=== PATIENT | male | born 1945 | race Caucasian/White ===

== ENCOUNTER 2018-07-07 13:58 | Emergency (ER) | payer MEDICARE, OTHER ==
[~2018-07-07] VITALS: Ht 177.8 cm; Wt 97.1 kg
[~2018-07-07 13:58] MED LIST: ASPI325; ASPI81EC PO; ATEN100; BUME2 PO; CARV25 PO; CARV6.25 PO; CEFD300 PO; CLIN300 PO; CLOBETTC TOP; Clotrimazole-Be15 GM TP; Diflucan100 MG PO; ELIQUIS5 MG PO; FOSI10; FOSI10 PO; FURO20 PO; INS50/50I; INSLIS75I SUBQ; INSUASPI SC; INSULANPEN SC; LOSHYD; POTCHL20ER; POTCHL20ER PO; PROBIOTIC1 EAC1 PO; QUIN325; SIMV10 PO; SKIEMOTL12; SPIR25 PO; Sudogest60 MG PO; TRAM50 PO; Triamcinolone A15 GM TOP; Ultram50 MG PO; Vistaril25 MG PO
== END 2018-07-07 16:08 | disposition home or self-care (01) ==
LOC: ER 13:58
DX: E11.622 Type 2 diabetes mellitus with other skin ulcer (principal); L97.929 Non-pressure chronic ulcer of unspecified part of left lower leg with unspecified severity; L97.919 Non-pressure chronic ulcer of unspecified part of right lower leg with unspecified severity; Z88.2 Allergy status to sulfonamides; Z88.5 Allergy status to narcotic agent; Z79.899 Other long term (current) drug therapy; Z79.4 Long term (current) use of insulin
CPT/HCPCS: 73590; 99283-25

== ENCOUNTER 2019-02-06 19:54 | Emergency (ER) | payer MEDICARE, OTHER ==
[~2019-02-06] VITALS: Ht 177.8 cm; Wt 95.2 kg
[2019-02-06] MEDS ORDERED: Norco 7.5-3251 EACH PO (21:23)
== END 2019-02-06 21:45 | disposition home or self-care (01) ==
LOC: ER 19:54
DX: S42.252A Displaced fracture of greater tuberosity of left humerus, initial encounter for closed fracture (principal); W18.30XA Fall on same level, unspecified, initial encounter; Z88.2 Allergy status to sulfonamides; Z88.5 Allergy status to narcotic agent; Z79.899 Other long term (current) drug therapy; Z79.4 Long term (current) use of insulin; Z86.73 Personal history of transient ischemic attack (TIA), and cerebral infarction without residual deficits; E10.40 Type 1 diabetes mellitus with diabetic neuropathy, unspecified; Z87.891 Personal history of nicotine dependence
CPT/HCPCS: 29105; 73030; 99283-25

== ENCOUNTER 2019-03-12 12:07 | Day surgery (SDC) | payer MEDICARE, OTHER ==
[~2019-03-12 12:07] MED LIST changes: +Norco 7.5-3251 EACH PO
== END 2019-03-12 23:03 | disposition home or self-care (01) ==
LOC: WOUND 12:07
DX: R23.4 Changes in skin texture (principal); E10.9 Type 1 diabetes mellitus without complications; E78.5 Hyperlipidemia, unspecified; Z87.891 Personal history of nicotine dependence; Z86.73 Personal history of transient ischemic attack (TIA), and cerebral infarction without residual deficits
CPT/HCPCS: G0463

== ENCOUNTER 2019-09-15 07:10 | Emergency (ER) | payer MEDICARE, OTHER ==
[~2019-09-15] VITALS: Ht 177.8 cm; Wt 95.2 kg
== END 2019-09-15 08:40 | disposition home or self-care (01) ==
LOC: ER 07:10
DX: R58 Hemorrhage, not elsewhere classified (principal); E10.40 Type 1 diabetes mellitus with diabetic neuropathy, unspecified; Z86.73 Personal history of transient ischemic attack (TIA), and cerebral infarction without residual deficits; Z87.891 Personal history of nicotine dependence; Z88.2 Allergy status to sulfonamides; Z88.5 Allergy status to narcotic agent; Z79.899 Other long term (current) drug therapy; Z79.01 Long term (current) use of anticoagulants; Z79.1 Long term (current) use of non-steroidal anti-inflammatories (NSAID)
CPT/HCPCS: 99283

== ENCOUNTER 2020-01-15 08:39 | Emergency (ER) | payer MEDICARE, OTHER ==
[~2020-01-15] VITALS: Ht 175.3 cm; Wt 95.2 kg
[2020-01-15] MEDS ORDERED: LISI5 (09:22)
[2020-01-15 11:31] LABS: BASOPHILS ABSOLUTE AUTO 0.07 K/mm3 (0.00-0.23); BASOPHILS PERCENT AUTO 1 % (0-2); EOSINOPHILS ABSOLUTE AUTO 0.29 K/mm3 (0.00-0.68); EOSINOPHILS PERCENT AUTO 3 % (0-6); Hematocrit 43.5 % (37.0-53.0); Hemoglobin 14.5 g/dL (13.5-17.5); IMMATURE GRAN ABSOLUTE AUTO 0.05 K/mm3 (0.00-0.10); IMMATURE GRAN PERCENT AUTO 1 % (0-1); LYMPHOCYTES ABSOLUTE AUTO 1.32 K/mm3 (0.84-5.20); LYMPHOCYTES PERCENT AUTO 13 % (21-46); MONOCYTES ABSOLUTE AUTO 1.08 K/mm3 (0.16-1.47); MONOCYTES PERCENT AUTO 11 % (4-13); Mean Corpuscular HGB 31.1 pg (26.0-34.0); Mean Corpuscular HGB Conc 33.3 g/dL (31.5-36.5); Mean Corpuscular Volume 93 fL (80-100); Mean Platelet Volume 10.6 fL (9.1-12.4); NEUTROPHILS ABSOLUTE AUTO 7.42 K/mm3 (1.96-9.15); NEUTROPHILS PERCENT AUTO 73 % (41-73); Platelet Count 377 K/mm3 (150-400); RDW Coefficient Variation 12.2 % (11.7-14.2); RDW Standard Deviation 42.4 fL (35.1-46.3); Red Blood Cell Count 4.66 M/mm3 (4.30-5.90); White Blood Cell Count 10.23 K/mm3 (4.00-11.30)
[2020-01-15 11:39] LABS: Alanine Aminotransfer (ALT/SGP 33 U/L (12-78); Albumin, Blood 3.2 g/dL (3.4-5.0); Albumin/Globulin Ratio 0.8 (0.8-1.8); Alk Phos 93 U/L (50-136); Anion Gap 7 mmol/L (6-16); Aspartate Aminotrans (AST/SGOT 28 U/L (12-37); Bilirubin, Total 0.6 mg/dL (0.1-1.0); Blood Urea Nitrogen 17 mg/dL (8-24); Bun/Creatinine Ratio 22.5 (12.0-20.0); CO2, Blood 27 mmol/L (21-32); Calcium, Blood 8.8 mg/dL (8.5-10.1); Chloride, Blood 104 mmol/L (98-108); Creatinine, Blood 0.76 mg/dL (0.60-1.20); Globulin, Blood 4.1 g/dL (2.2-4.0); Glomerular Filtration Rate >60 (60-); Glucose, Blood 201 mg/dL (70-99); Potassium, Blood 3.7 mmol/L (3.5-5.5); Sodium, Blood 138 mmol/L (136-145); Total Protein, Blood 7.3 g/dL (6.4-8.2)
== END 2020-01-15 12:08 | disposition home or self-care (01) ==
LOC: ER 08:39
PROVIDERS: Physician Assistant
DX: E10.649 Type 1 diabetes mellitus with hypoglycemia without coma (principal); E10.40 Type 1 diabetes mellitus with diabetic neuropathy, unspecified; Z88.2 Allergy status to sulfonamides; Z79.899 Other long term (current) drug therapy; Z87.891 Personal history of nicotine dependence
CPT/HCPCS: 80053; 82947; 85025; 96361; 96374; 99285-25; J7042

== ENCOUNTER 2021-05-02 04:09 | Day surgery (SDC) | payer MEDICARE, OTHER ==
[~2021-05-02 04:09] MED LIST changes: +LISI5
== END 2021-05-02 23:31 | disposition home or self-care (01) ==
LOC: WOUND 04:09
DX: L89.312 Pressure ulcer of right buttock, stage 2 (principal); E11.65 Type 2 diabetes mellitus with hyperglycemia; Z88.5 Allergy status to narcotic agent
CPT/HCPCS: A9270; G0463

== ENCOUNTER 2021-05-11 08:00 | Day surgery (SDC) | payer MEDICARE, OTHER | END 2021-05-11 23:59 | disposition home or self-care (01) | LOC: WOUND 08:00 | DX: L89.312 Pressure ulcer of right buttock, stage 2 (principal); E11.65 Type 2 diabetes mellitus with hyperglycemia; Z89.512 Acquired absence of left leg below knee; Z88.1 Allergy status to other antibiotic agents; Z88.6 Allergy status to analgesic agent | CPT/HCPCS: A9270 ==

== ENCOUNTER 2021-05-25 00:52 | Day surgery (SDC) | payer MEDICARE, OTHER | END 2021-05-25 22:48 | disposition home or self-care (01) | LOC: WOUND 00:52 | DX: L89.312 Pressure ulcer of right buttock, stage 2 (principal); E11.65 Type 2 diabetes mellitus with hyperglycemia | CPT/HCPCS: G0463 ==

== ENCOUNTER 2022-02-07 01:50 | Day surgery (SDC) | payer MEDICARE, OTHER ==
[~2022-02-07 01:50] MED LIST changes: +CEPH500 PO; +DOXY100 PO
== END 2022-02-07 23:24 | disposition home or self-care (01) ==
LOC: WOUND 01:50
DX: E11.51 Type 2 diabetes mellitus with diabetic peripheral angiopathy without gangrene (principal); I70.234 Atherosclerosis of native arteries of right leg with ulceration of heel and midfoot; E11.621 Type 2 diabetes mellitus with foot ulcer; L97.412 Non-pressure chronic ulcer of right heel and midfoot with fat layer exposed; E11.42 Type 2 diabetes mellitus with diabetic polyneuropathy; E11.610 Type 2 diabetes mellitus with diabetic neuropathic arthropathy; I87.2 Venous insufficiency (chronic) (peripheral); I48.91 Unspecified atrial fibrillation; I50.9 Heart failure, unspecified
CPT/HCPCS: A9270; G0463

== ENCOUNTER 2022-02-14 01:41 | Day surgery (SDC) | payer MEDICARE, OTHER | END 2022-02-14 23:29 | disposition home or self-care (01) | LOC: WOUND 01:41 | DX: E10.621 Type 1 diabetes mellitus with foot ulcer (principal); S61.412A Laceration without foreign body of left hand, initial encounter; L97.522 Non-pressure chronic ulcer of other part of left foot with fat layer exposed; L97.412 Non-pressure chronic ulcer of right heel and midfoot with fat layer exposed; I70.234 Atherosclerosis of native arteries of right leg with ulceration of heel and midfoot; I87.2 Venous insufficiency (chronic) (peripheral); I50.9 Heart failure, unspecified; I48.91 Unspecified atrial fibrillation | CPT/HCPCS: A9270; G0463 ==

== ENCOUNTER 2022-03-07 00:41 | Day surgery (SDC) | payer MEDICARE, OTHER | END 2022-03-07 22:58 | disposition home or self-care (01) | LOC: WOUND 00:41 | DX: E11.621 Type 2 diabetes mellitus with foot ulcer (principal); L97.412 Non-pressure chronic ulcer of right heel and midfoot with fat layer exposed; I70.234 Atherosclerosis of native arteries of right leg with ulceration of heel and midfoot; S61.412A Laceration without foreign body of left hand, initial encounter; E11.42 Type 2 diabetes mellitus with diabetic polyneuropathy; E11.51 Type 2 diabetes mellitus with diabetic peripheral angiopathy without gangrene; E11.610 Type 2 diabetes mellitus with diabetic neuropathic arthropathy | CPT/HCPCS: A9270; G0463 ==

== ENCOUNTER 2022-03-21 08:21 | Day surgery (SDC) | payer MEDICARE, OTHER | END 2022-03-21 23:02 | disposition home or self-care (01) | LOC: WOUND 08:21 | DX: E11.621 Type 2 diabetes mellitus with foot ulcer (principal); L97.522 Non-pressure chronic ulcer of other part of left foot with fat layer exposed; L97.412 Non-pressure chronic ulcer of right heel and midfoot with fat layer exposed; I87.2 Venous insufficiency (chronic) (peripheral); I70.234 Atherosclerosis of native arteries of right leg with ulceration of heel and midfoot; S61.412A Laceration without foreign body of left hand, initial encounter; X58.XXXA Exposure to other specified factors, initial encounter; E11.42 Type 2 diabetes mellitus with diabetic polyneuropathy; E11.610 Type 2 diabetes mellitus with diabetic neuropathic arthropathy; E11.51 Type 2 diabetes mellitus with diabetic peripheral angiopathy without gangrene | CPT/HCPCS: A9270 ==

== ENCOUNTER 2022-03-28 01:35 | Day surgery (SDC) | payer MEDICARE, OTHER | END 2022-03-28 23:30 | disposition home or self-care (01) | LOC: WOUND 01:35 | DX: E11.621 Type 2 diabetes mellitus with foot ulcer (principal); L97.522 Non-pressure chronic ulcer of other part of left foot with fat layer exposed; E11.51 Type 2 diabetes mellitus with diabetic peripheral angiopathy without gangrene; L97.412 Non-pressure chronic ulcer of right heel and midfoot with fat layer exposed; I70.238 Atherosclerosis of native arteries of right leg with ulceration of other part of lower leg; E11.42 Type 2 diabetes mellitus with diabetic polyneuropathy; E11.610 Type 2 diabetes mellitus with diabetic neuropathic arthropathy; I87.2 Venous insufficiency (chronic) (peripheral); S61.412A Laceration without foreign body of left hand, initial encounter | CPT/HCPCS: A9270 ==

== ENCOUNTER 2022-04-03 15:50 | Emergency (ER) | payer MEDICARE, OTHER ==
[~2022-04-03] VITALS: Ht 170.2 cm; Wt 95.7 kg
[2022-04-03 17:07] LABS: Source, Urine Clean Catch
[2022-04-03 17:08] LABS: Appearance, Urine Cloudy (Clear); Bilirubin, Urine Neg (Neg); Blood, Urine 4+ (Neg); Color, Urine Yellow (P-Yellow); Glucose Qualitative, Urine 3+ (Neg); Ketones, Urine 2+ (Neg); Leukocyte Esterase, Urine 3+ (Neg); Nitrite, Urine Neg (Neg); Protein, Urine 2+ (Neg); Urobilinogen, Urine NORM (Normal)
[2022-04-03 17:19] LABS: BASOPHILS ABSOLUTE AUTO 0.04 K/mm3 (0.00-0.23); BASOPHILS PERCENT AUTO 0 % (0-2); EOSINOPHILS ABSOLUTE AUTO 0.04 K/mm3 (0.00-0.68); EOSINOPHILS PERCENT AUTO 0 % (0-6); Hematocrit 40.1 % (37.0-53.0); Hemoglobin 13.7 g/dL (13.5-17.5); IMMATURE GRAN ABSOLUTE AUTO 0.05 K/mm3 (0.00-0.10); IMMATURE GRAN PERCENT AUTO 1 % (0-1); LYMPHOCYTES ABSOLUTE AUTO 0.48 K/mm3 (0.84-5.20); LYMPHOCYTES PERCENT AUTO 5 % (21-46); MONOCYTES ABSOLUTE AUTO 0.83 K/mm3 (0.16-1.47); MONOCYTES PERCENT AUTO 8 % (4-13); Mean Corpuscular HGB 30.2 pg (26.0-34.0); Mean Corpuscular HGB Conc 34.2 g/dL (31.5-36.5); Mean Corpuscular Volume 89 fL (80-100); Mean Platelet Volume 9.8 fL (9.1-12.4); NEUTROPHILS ABSOLUTE AUTO 8.71 K/mm3 (1.96-9.15); NEUTROPHILS PERCENT AUTO 86 % (41-73); Platelet Count 332 K/mm3 (150-400); RDW Coefficient Variation 12.5 % (11.7-14.2); RDW Standard Deviation 40.4 fL (35.1-46.3); Red Blood Cell Count 4.53 M/mm3 (4.30-5.90); White Blood Cell Count 10.15 K/mm3 (4.00-11.30)
[2022-04-03 17:37] LABS: White Blood Cells, Urine 50-100 /hpf (0-5)
[2022-04-03 17:40] LABS: Yeast/Fungi Urine Few /hpf
[2022-04-03 17:41] LABS: Red Blood Cells, Urine 0-2 /hpf (0-2)
[2022-04-03 17:42] LABS: Bacteria Many /hpf; Squamous Epithelial Cells Rare /hpf (Few)
[2022-04-03 17:57] LABS: Albumin/Globulin Ratio 0.6 (0.8-1.8); Bilirubin, Total 0.5 mg/dL (0.1-1.0); Bun/Creatinine Ratio 38.5 (12.0-20.0); Calcium, Blood 8.8 mg/dL (8.5-10.1); Creatinine, Blood 1.04 mg/dL (0.60-1.20); Potassium, Blood 5.2 mmol/L (3.5-5.5)
[2022-04-03] MEDS ORDERED: CEFP200 PO (20:22)
[2022-04-03] MEDS ORDERED: Zithromax250 MG PO (20:22)
== END 2022-04-03 20:41 | disposition home or self-care (01) ==
LOC: ER 15:50
PROVIDERS: Student in an Organized Health Care Education/Training Program
DX: N39.0 Urinary tract infection, site not specified (principal); J18.9 Pneumonia, unspecified organism; E11.40 Type 2 diabetes mellitus with diabetic neuropathy, unspecified; I50.9 Heart failure, unspecified; Z88.2 Allergy status to sulfonamides; Z88.5 Allergy status to narcotic agent; Z79.899 Other long term (current) drug therapy; Z79.4 Long term (current) use of insulin
CPT/HCPCS: 71045; 80053; 81001; 83880; 84484; 85025; 93005; 93010; A9270; J7030

== ENCOUNTER 2022-04-18 03:35 | Day surgery (SDC) | payer MEDICARE, OTHER ==
[~2022-04-18 03:35] MED LIST changes: +CEFP200 PO; +Zithromax250 MG PO
== END 2022-04-18 23:21 | disposition home or self-care (01) ==
LOC: WOUND 03:35
DX: E11.621 Type 2 diabetes mellitus with foot ulcer (principal); L97.412 Non-pressure chronic ulcer of right heel and midfoot with fat layer exposed; L97.512 Non-pressure chronic ulcer of other part of right foot with fat layer exposed; L89.322 Pressure ulcer of left buttock, stage 2; L89.312 Pressure ulcer of right buttock, stage 2; E11.51 Type 2 diabetes mellitus with diabetic peripheral angiopathy without gangrene; I70.234 Atherosclerosis of native arteries of right leg with ulceration of heel and midfoot; S61.412A Laceration without foreign body of left hand, initial encounter; X58.XXXA Exposure to other specified factors, initial encounter; E11.42 Type 2 diabetes mellitus with diabetic polyneuropathy; E11.610 Type 2 diabetes mellitus with diabetic neuropathic arthropathy; I87.2 Venous insufficiency (chronic) (peripheral)
CPT/HCPCS: A9270; G0463

== ENCOUNTER 2022-04-25 01:20 | Day surgery (SDC) | payer MEDICARE, OTHER | END 2022-04-25 22:53 | disposition home or self-care (01) | LOC: WOUND 01:20 | DX: E11.621 Type 2 diabetes mellitus with foot ulcer (principal); L97.522 Non-pressure chronic ulcer of other part of left foot with fat layer exposed; L97.512 Non-pressure chronic ulcer of other part of right foot with fat layer exposed; L89.322 Pressure ulcer of left buttock, stage 2; L89.312 Pressure ulcer of right buttock, stage 2; L97.412 Non-pressure chronic ulcer of right heel and midfoot with fat layer exposed; E11.51 Type 2 diabetes mellitus with diabetic peripheral angiopathy without gangrene; I70.234 Atherosclerosis of native arteries of right leg with ulceration of heel and midfoot; S61.412A Laceration without foreign body of left hand, initial encounter; X58.XXXA Exposure to other specified factors, initial encounter; E11.42 Type 2 diabetes mellitus with diabetic polyneuropathy; E11.610 Type 2 diabetes mellitus with diabetic neuropathic arthropathy; I87.2 Venous insufficiency (chronic) (peripheral) | CPT/HCPCS: G0463 ==

== ENCOUNTER 2022-05-09 08:00 | Day surgery (SDC) | payer MEDICARE, OTHER | END 2022-05-09 23:59 | disposition home or self-care (01) | LOC: WOUND 08:00 | DX: E11.621 Type 2 diabetes mellitus with foot ulcer (principal); L97.512 Non-pressure chronic ulcer of other part of right foot with fat layer exposed; E11.51 Type 2 diabetes mellitus with diabetic peripheral angiopathy without gangrene; L97.412 Non-pressure chronic ulcer of right heel and midfoot with fat layer exposed; I70.234 Atherosclerosis of native arteries of right leg with ulceration of heel and midfoot; S61.412A Laceration without foreign body of left hand, initial encounter; E11.42 Type 2 diabetes mellitus with diabetic polyneuropathy; E11.610 Type 2 diabetes mellitus with diabetic neuropathic arthropathy; I87.2 Venous insufficiency (chronic) (peripheral); Z89.512 Acquired absence of left leg below knee; Z88.2 Allergy status to sulfonamides | CPT/HCPCS: A9270; G0463 ==

== ENCOUNTER 2022-05-23 02:39 | Day surgery (SDC) | payer MEDICARE, OTHER | END 2022-05-24 23:56 | disposition home or self-care (01) | LOC: WOUND 02:39 | DX: E11.621 Type 2 diabetes mellitus with foot ulcer (principal); L97.512 Non-pressure chronic ulcer of other part of right foot with fat layer exposed; L97.412 Non-pressure chronic ulcer of right heel and midfoot with fat layer exposed; E11.610 Type 2 diabetes mellitus with diabetic neuropathic arthropathy; E11.42 Type 2 diabetes mellitus with diabetic polyneuropathy; I70.234 Atherosclerosis of native arteries of right leg with ulceration of heel and midfoot; I87.2 Venous insufficiency (chronic) (peripheral); Z88.8 Allergy status to other drugs, medicaments and biological substances; Z88.5 Allergy status to narcotic agent | CPT/HCPCS: A9270 ==

== ENCOUNTER 2022-06-20 01:20 | Day surgery (SDC) | payer MEDICARE, OTHER | END 2022-06-20 23:47 | disposition home or self-care (01) | LOC: WOUND 01:20 | DX: E11.621 Type 2 diabetes mellitus with foot ulcer (principal); L97.412 Non-pressure chronic ulcer of right heel and midfoot with fat layer exposed; L97.512 Non-pressure chronic ulcer of other part of right foot with fat layer exposed; E11.51 Type 2 diabetes mellitus with diabetic peripheral angiopathy without gangrene; I70.234 Atherosclerosis of native arteries of right leg with ulceration of heel and midfoot; E11.42 Type 2 diabetes mellitus with diabetic polyneuropathy; E11.610 Type 2 diabetes mellitus with diabetic neuropathic arthropathy; I87.2 Venous insufficiency (chronic) (peripheral) | CPT/HCPCS: G0463 ==

== ENCOUNTER 2022-07-04 03:45 | Day surgery (SDC) | payer MEDICARE, OTHER | END 2022-07-04 23:19 | disposition home or self-care (01) | LOC: WOUND 03:45 | DX: E11.621 Type 2 diabetes mellitus with foot ulcer (principal); L97.412 Non-pressure chronic ulcer of right heel and midfoot with fat layer exposed; L97.512 Non-pressure chronic ulcer of other part of right foot with fat layer exposed; E11.42 Type 2 diabetes mellitus with diabetic polyneuropathy; E11.610 Type 2 diabetes mellitus with diabetic neuropathic arthropathy; I70.234 Atherosclerosis of native arteries of right leg with ulceration of heel and midfoot; I87.2 Venous insufficiency (chronic) (peripheral); I50.9 Heart failure, unspecified; Z88.2 Allergy status to sulfonamides | CPT/HCPCS: G0463 ==

== ENCOUNTER 2022-07-18 07:41 | Day surgery (SDC) | payer MEDICARE, OTHER | END 2022-07-18 23:45 | disposition home or self-care (01) | LOC: WOUND 07:41 | DX: E11.621 Type 2 diabetes mellitus with foot ulcer (principal); L97.412 Non-pressure chronic ulcer of right heel and midfoot with fat layer exposed; I70.234 Atherosclerosis of native arteries of right leg with ulceration of heel and midfoot; E11.42 Type 2 diabetes mellitus with diabetic polyneuropathy; E11.610 Type 2 diabetes mellitus with diabetic neuropathic arthropathy | CPT/HCPCS: G0463 ==

== ENCOUNTER 2022-08-07 02:31 | Day surgery (SDC) | payer MEDICARE, OTHER ==
[~2022-08-07 02:31] MED LIST changes: +DEXT30SU PO; +Ventolin/Prove6.7 GM INH
== END 2022-08-07 22:55 | disposition home or self-care (01) ==
LOC: WOUND 02:31
DX: E11.621 Type 2 diabetes mellitus with foot ulcer (principal); L97.512 Non-pressure chronic ulcer of other part of right foot with fat layer exposed; L97.412 Non-pressure chronic ulcer of right heel and midfoot with fat layer exposed; E11.51 Type 2 diabetes mellitus with diabetic peripheral angiopathy without gangrene; I70.234 Atherosclerosis of native arteries of right leg with ulceration of heel and midfoot; E11.42 Type 2 diabetes mellitus with diabetic polyneuropathy; I87.2 Venous insufficiency (chronic) (peripheral)
CPT/HCPCS: G0463

== ENCOUNTER 2022-08-22 02:43 | Day surgery (SDC) | payer MEDICARE, OTHER | END 2022-08-22 23:02 | disposition home or self-care (01) | LOC: WOUND 02:43 | DX: E11.621 Type 2 diabetes mellitus with foot ulcer (principal); I70.234 Atherosclerosis of native arteries of right leg with ulceration of heel and midfoot; L97.412 Non-pressure chronic ulcer of right heel and midfoot with fat layer exposed; L97.512 Non-pressure chronic ulcer of other part of right foot with fat layer exposed; E11.622 Type 2 diabetes mellitus with other skin ulcer; L97.812 Non-pressure chronic ulcer of other part of right lower leg with fat layer exposed; I87.2 Venous insufficiency (chronic) (peripheral); E11.42 Type 2 diabetes mellitus with diabetic polyneuropathy; E11.610 Type 2 diabetes mellitus with diabetic neuropathic arthropathy; Z89.512 Acquired absence of left leg below knee | CPT/HCPCS: G0463 ==

== ENCOUNTER 2022-09-05 02:27 | Day surgery (SDC) | payer MEDICARE, OTHER | END 2022-09-05 23:47 | disposition home or self-care (01) | LOC: WOUND 02:27 | DX: E11.621 Type 2 diabetes mellitus with foot ulcer (principal); L97.512 Non-pressure chronic ulcer of other part of right foot with fat layer exposed; L97.812 Non-pressure chronic ulcer of other part of right lower leg with fat layer exposed; E11.622 Type 2 diabetes mellitus with other skin ulcer; L97.412 Non-pressure chronic ulcer of right heel and midfoot with fat layer exposed; E11.51 Type 2 diabetes mellitus with diabetic peripheral angiopathy without gangrene; I70.234 Atherosclerosis of native arteries of right leg with ulceration of heel and midfoot; E11.610 Type 2 diabetes mellitus with diabetic neuropathic arthropathy; E11.42 Type 2 diabetes mellitus with diabetic polyneuropathy; I87.2 Venous insufficiency (chronic) (peripheral) | CPT/HCPCS: A9270 ==

== ENCOUNTER 2022-09-12 02:26 | Day surgery (SDC) | payer MEDICARE, OTHER | END 2022-09-12 23:27 | disposition home or self-care (01) | LOC: WOUND 02:26 | DX: E11.621 Type 2 diabetes mellitus with foot ulcer (principal); L97.512 Non-pressure chronic ulcer of other part of right foot with fat layer exposed; E11.622 Type 2 diabetes mellitus with other skin ulcer; L97.412 Non-pressure chronic ulcer of right heel and midfoot with fat layer exposed; I70.234 Atherosclerosis of native arteries of right leg with ulceration of heel and midfoot; E11.51 Type 2 diabetes mellitus with diabetic peripheral angiopathy without gangrene; E11.42 Type 2 diabetes mellitus with diabetic polyneuropathy; E11.610 Type 2 diabetes mellitus with diabetic neuropathic arthropathy; I87.2 Venous insufficiency (chronic) (peripheral) | CPT/HCPCS: G0463 ==

== ENCOUNTER 2022-09-19 02:24 | Day surgery (SDC) | payer MEDICARE, OTHER | END 2022-09-19 23:40 | disposition home or self-care (01) | LOC: WOUND 02:24 | DX: E10.621 Type 1 diabetes mellitus with foot ulcer (principal); L97.512 Non-pressure chronic ulcer of other part of right foot with fat layer exposed; L97.812 Non-pressure chronic ulcer of other part of right lower leg with fat layer exposed; E10.622 Type 1 diabetes mellitus with other skin ulcer; L97.412 Non-pressure chronic ulcer of right heel and midfoot with fat layer exposed; E10.51 Type 1 diabetes mellitus with diabetic peripheral angiopathy without gangrene; I70.234 Atherosclerosis of native arteries of right leg with ulceration of heel and midfoot; Z89.512 Acquired absence of left leg below knee; E10.610 Type 1 diabetes mellitus with diabetic neuropathic arthropathy; E10.42 Type 1 diabetes mellitus with diabetic polyneuropathy ==

== ENCOUNTER 2022-09-21 00:12 | Day surgery (SDC) | payer MEDICARE, OTHER | END 2022-09-21 22:55 | disposition home or self-care (01) | LOC: WOUND 00:12 | DX: E10.621 Type 1 diabetes mellitus with foot ulcer (principal); E10.622 Type 1 diabetes mellitus with other skin ulcer; L97.412 Non-pressure chronic ulcer of right heel and midfoot with fat layer exposed; L97.812 Non-pressure chronic ulcer of other part of right lower leg with fat layer exposed; I87.2 Venous insufficiency (chronic) (peripheral); I70.234 Atherosclerosis of native arteries of right leg with ulceration of heel and midfoot; E10.42 Type 1 diabetes mellitus with diabetic polyneuropathy; E10.610 Type 1 diabetes mellitus with diabetic neuropathic arthropathy ==

== ENCOUNTER 2022-09-26 14:44 | Day surgery (SDC) | payer MEDICARE, OTHER | END 2022-09-26 23:16 | disposition home or self-care (01) | LOC: WOUND 14:44 | DX: E10.621 Type 1 diabetes mellitus with foot ulcer (principal); L97.412 Non-pressure chronic ulcer of right heel and midfoot with fat layer exposed; L97.812 Non-pressure chronic ulcer of other part of right lower leg with fat layer exposed; I87.2 Venous insufficiency (chronic) (peripheral); I70.234 Atherosclerosis of native arteries of right leg with ulceration of heel and midfoot; E10.42 Type 1 diabetes mellitus with diabetic polyneuropathy; E10.610 Type 1 diabetes mellitus with diabetic neuropathic arthropathy; E10.622 Type 1 diabetes mellitus with other skin ulcer ==

== ENCOUNTER 2022-10-03 02:26 | Day surgery (SDC) | payer MEDICARE, OTHER | END 2022-10-03 23:07 | disposition home or self-care (01) | LOC: WOUND 02:26 | DX: E10.621 Type 1 diabetes mellitus with foot ulcer (principal); L97.512 Non-pressure chronic ulcer of other part of right foot with fat layer exposed; L97.812 Non-pressure chronic ulcer of other part of right lower leg with fat layer exposed; L97.412 Non-pressure chronic ulcer of right heel and midfoot with fat layer exposed; I87.2 Venous insufficiency (chronic) (peripheral); I70.234 Atherosclerosis of native arteries of right leg with ulceration of heel and midfoot; E10.622 Type 1 diabetes mellitus with other skin ulcer; E10.42 Type 1 diabetes mellitus with diabetic polyneuropathy; E10.610 Type 1 diabetes mellitus with diabetic neuropathic arthropathy; E10.51 Type 1 diabetes mellitus with diabetic peripheral angiopathy without gangrene | CPT/HCPCS: A9270; G0463 ==

== ENCOUNTER 2022-10-10 06:05 | Day surgery (SDC) | payer MEDICARE, OTHER | END 2022-10-10 23:08 | disposition home or self-care (01) | LOC: WOUND 06:05 | DX: E10.621 Type 1 diabetes mellitus with foot ulcer (principal); E10.622 Type 1 diabetes mellitus with other skin ulcer; L97.412 Non-pressure chronic ulcer of right heel and midfoot with fat layer exposed; L97.812 Non-pressure chronic ulcer of other part of right lower leg with fat layer exposed; I87.2 Venous insufficiency (chronic) (peripheral); E10.51 Type 1 diabetes mellitus with diabetic peripheral angiopathy without gangrene; E10.42 Type 1 diabetes mellitus with diabetic polyneuropathy; I70.234 Atherosclerosis of native arteries of right leg with ulceration of heel and midfoot; L89.92 Pressure ulcer of unspecified site, stage 2; T23.262D Burn of second degree of back of left hand, subsequent encounter | CPT/HCPCS: A9270 ==

== ENCOUNTER 2022-10-17 00:16 | Day surgery (SDC) | payer MEDICARE, OTHER | END 2022-10-17 22:59 | disposition home or self-care (01) | LOC: WOUND 00:16 | DX: E10.621 Type 1 diabetes mellitus with foot ulcer (principal); L97.512 Non-pressure chronic ulcer of other part of right foot with fat layer exposed; L89.892 Pressure ulcer of other site, stage 2; E10.622 Type 1 diabetes mellitus with other skin ulcer; I87.2 Venous insufficiency (chronic) (peripheral); L97.412 Non-pressure chronic ulcer of right heel and midfoot with fat layer exposed; L97.812 Non-pressure chronic ulcer of other part of right lower leg with fat layer exposed; I70.234 Atherosclerosis of native arteries of right leg with ulceration of heel and midfoot; E10.42 Type 1 diabetes mellitus with diabetic polyneuropathy; L89.92 Pressure ulcer of unspecified site, stage 2 | CPT/HCPCS: A9270 ==

== ENCOUNTER 2022-10-24 00:53 | Day surgery (SDC) | payer MEDICARE, OTHER | END 2022-10-25 00:05 | disposition home or self-care (01) | LOC: WOUND 00:53 | DX: E10.621 Type 1 diabetes mellitus with foot ulcer (principal); E10.622 Type 1 diabetes mellitus with other skin ulcer; L97.412 Non-pressure chronic ulcer of right heel and midfoot with fat layer exposed; L97.812 Non-pressure chronic ulcer of other part of right lower leg with fat layer exposed; I87.2 Venous insufficiency (chronic) (peripheral); I70.234 Atherosclerosis of native arteries of right leg with ulceration of heel and midfoot; E10.51 Type 1 diabetes mellitus with diabetic peripheral angiopathy without gangrene; E10.42 Type 1 diabetes mellitus with diabetic polyneuropathy; E10.610 Type 1 diabetes mellitus with diabetic neuropathic arthropathy; L89.92 Pressure ulcer of unspecified site, stage 2 | CPT/HCPCS: A9270 ==

== ENCOUNTER 2022-10-31 01:02 | Day surgery (SDC) | payer MEDICARE, OTHER | END 2022-10-31 22:45 | disposition home or self-care (01) | LOC: WOUND 01:02 | DX: E10.621 Type 1 diabetes mellitus with foot ulcer (principal); E10.622 Type 1 diabetes mellitus with other skin ulcer; L97.412 Non-pressure chronic ulcer of right heel and midfoot with fat layer exposed; L97.812 Non-pressure chronic ulcer of other part of right lower leg with fat layer exposed; I87.2 Venous insufficiency (chronic) (peripheral); I70.234 Atherosclerosis of native arteries of right leg with ulceration of heel and midfoot; E10.42 Type 1 diabetes mellitus with diabetic polyneuropathy; E10.610 Type 1 diabetes mellitus with diabetic neuropathic arthropathy; L89.92 Pressure ulcer of unspecified site, stage 2 | CPT/HCPCS: A9270 ==

== ENCOUNTER 2022-11-08 04:08 | Day surgery (SDC) | payer MEDICARE, OTHER | END 2022-11-08 22:54 | disposition home or self-care (01) | LOC: WOUND 04:08 | DX: E10.621 Type 1 diabetes mellitus with foot ulcer (principal); L97.512 Non-pressure chronic ulcer of other part of right foot with fat layer exposed; I87.2 Venous insufficiency (chronic) (peripheral); L89.892 Pressure ulcer of other site, stage 2; E10.622 Type 1 diabetes mellitus with other skin ulcer; L97.412 Non-pressure chronic ulcer of right heel and midfoot with fat layer exposed; L97.812 Non-pressure chronic ulcer of other part of right lower leg with fat layer exposed; E10.51 Type 1 diabetes mellitus with diabetic peripheral angiopathy without gangrene; I70.234 Atherosclerosis of native arteries of right leg with ulceration of heel and midfoot; E10.42 Type 1 diabetes mellitus with diabetic polyneuropathy; E10.610 Type 1 diabetes mellitus with diabetic neuropathic arthropathy; L89.92 Pressure ulcer of unspecified site, stage 2 | CPT/HCPCS: A9270 ==

== ENCOUNTER 2022-11-16 02:13 | Day surgery (SDC) | payer MEDICARE, OTHER | END 2022-11-16 23:18 | disposition home or self-care (01) | LOC: WOUND 02:13 | DX: E10.621 Type 1 diabetes mellitus with foot ulcer (principal); E10.42 Type 1 diabetes mellitus with diabetic polyneuropathy; E10.610 Type 1 diabetes mellitus with diabetic neuropathic arthropathy; L97.412 Non-pressure chronic ulcer of right heel and midfoot with fat layer exposed; I87.2 Venous insufficiency (chronic) (peripheral); I70.234 Atherosclerosis of native arteries of right leg with ulceration of heel and midfoot; L89.92 Pressure ulcer of unspecified site, stage 2; Z89.522 Acquired absence of left knee | CPT/HCPCS: A9270 ==

== ENCOUNTER 2022-11-21 04:45 | Day surgery (SDC) | payer MEDICARE, OTHER | END 2022-11-21 23:07 | disposition home or self-care (01) | LOC: WOUND 04:45 | DX: E10.621 Type 1 diabetes mellitus with foot ulcer (principal); L89.892 Pressure ulcer of other site, stage 2; L97.512 Non-pressure chronic ulcer of other part of right foot with fat layer exposed; L97.412 Non-pressure chronic ulcer of right heel and midfoot with fat layer exposed; L97.812 Non-pressure chronic ulcer of other part of right lower leg with fat layer exposed; I87.2 Venous insufficiency (chronic) (peripheral); I70.234 Atherosclerosis of native arteries of right leg with ulceration of heel and midfoot; E10.51 Type 1 diabetes mellitus with diabetic peripheral angiopathy without gangrene; E10.42 Type 1 diabetes mellitus with diabetic polyneuropathy; E10.610 Type 1 diabetes mellitus with diabetic neuropathic arthropathy; Z89.512 Acquired absence of left leg below knee | CPT/HCPCS: A9270 ==

== ENCOUNTER 2022-11-29 02:59 | Day surgery (SDC) | payer MEDICARE, OTHER | END 2022-11-29 23:12 | disposition home or self-care (01) | LOC: WOUND 02:59 | DX: E10.621 Type 1 diabetes mellitus with foot ulcer (principal); E10.622 Type 1 diabetes mellitus with other skin ulcer; L97.412 Non-pressure chronic ulcer of right heel and midfoot with fat layer exposed; L97.812 Non-pressure chronic ulcer of other part of right lower leg with fat layer exposed; I87.2 Venous insufficiency (chronic) (peripheral); L89.892 Pressure ulcer of other site, stage 2; T23.262D Burn of second degree of back of left hand, subsequent encounter; E10.42 Type 1 diabetes mellitus with diabetic polyneuropathy; I70.234 Atherosclerosis of native arteries of right leg with ulceration of heel and midfoot | CPT/HCPCS: A9270 ==

== ENCOUNTER 2022-12-06 03:42 | Day surgery (SDC) | payer MEDICARE, OTHER | END 2022-12-06 23:38 | disposition home or self-care (01) | LOC: WOUND 03:42 | DX: E10.621 Type 1 diabetes mellitus with foot ulcer (principal); L97.512 Non-pressure chronic ulcer of other part of right foot with fat layer exposed; L97.412 Non-pressure chronic ulcer of right heel and midfoot with fat layer exposed; I70.234 Atherosclerosis of native arteries of right leg with ulceration of heel and midfoot; I87.2 Venous insufficiency (chronic) (peripheral); L97.812 Non-pressure chronic ulcer of other part of right lower leg with fat layer exposed; E10.42 Type 1 diabetes mellitus with diabetic polyneuropathy; E10.610 Type 1 diabetes mellitus with diabetic neuropathic arthropathy; T23.262A Burn of second degree of back of left hand, initial encounter; L89.92 Pressure ulcer of unspecified site, stage 2 | CPT/HCPCS: A9270 ==

== ENCOUNTER 2022-12-13 02:37 | Day surgery (SDC) | payer MEDICARE, OTHER | END 2022-12-13 23:02 | disposition home or self-care (01) | LOC: WOUND 02:37 | DX: E10.621 Type 1 diabetes mellitus with foot ulcer (principal); E10.622 Type 1 diabetes mellitus with other skin ulcer; I70.234 Atherosclerosis of native arteries of right leg with ulceration of heel and midfoot; I87.2 Venous insufficiency (chronic) (peripheral); L97.512 Non-pressure chronic ulcer of other part of right foot with fat layer exposed; L97.412 Non-pressure chronic ulcer of right heel and midfoot with fat layer exposed; L97.812 Non-pressure chronic ulcer of other part of right lower leg with fat layer exposed; E10.42 Type 1 diabetes mellitus with diabetic polyneuropathy; E10.610 Type 1 diabetes mellitus with diabetic neuropathic arthropathy; T23.262A Burn of second degree of back of left hand, initial encounter; L89.92 Pressure ulcer of unspecified site, stage 2 | CPT/HCPCS: A9270 ==

== ENCOUNTER 2022-12-20 03:35 | Day surgery (SDC) | payer MEDICARE, OTHER | END 2022-12-20 22:43 | disposition home or self-care (01) | LOC: WOUND 03:35 | DX: E10.621 Type 1 diabetes mellitus with foot ulcer (principal); L97.512 Non-pressure chronic ulcer of other part of right foot with fat layer exposed; I70.234 Atherosclerosis of native arteries of right leg with ulceration of heel and midfoot; E10.42 Type 1 diabetes mellitus with diabetic polyneuropathy | CPT/HCPCS: A9270 ==

== ENCOUNTER 2022-12-26 00:26 | Day surgery (SDC) | payer MEDICARE, OTHER | END 2022-12-26 23:33 | disposition home or self-care (01) | LOC: WOUND 00:26 | DX: E10.621 Type 1 diabetes mellitus with foot ulcer (principal); E10.622 Type 1 diabetes mellitus with other skin ulcer; L97.412 Non-pressure chronic ulcer of right heel and midfoot with fat layer exposed; L97.512 Non-pressure chronic ulcer of other part of right foot with fat layer exposed; L97.812 Non-pressure chronic ulcer of other part of right lower leg with fat layer exposed; I70.234 Atherosclerosis of native arteries of right leg with ulceration of heel and midfoot; I87.2 Venous insufficiency (chronic) (peripheral); E10.42 Type 1 diabetes mellitus with diabetic polyneuropathy; E10.610 Type 1 diabetes mellitus with diabetic neuropathic arthropathy; L89.92 Pressure ulcer of unspecified site, stage 2; T23.262D Burn of second degree of back of left hand, subsequent encounter; X58.XXXD Exposure to other specified factors, subsequent encounter ==

== ENCOUNTER 2023-01-02 01:17 | Day surgery (SDC) | payer MEDICARE, OTHER | END 2023-01-02 22:51 | disposition home or self-care (01) | LOC: WOUND 01:17 | DX: E10.621 Type 1 diabetes mellitus with foot ulcer (principal); L97.512 Non-pressure chronic ulcer of other part of right foot with fat layer exposed; I87.2 Venous insufficiency (chronic) (peripheral); E10.622 Type 1 diabetes mellitus with other skin ulcer; L97.412 Non-pressure chronic ulcer of right heel and midfoot with fat layer exposed; L97.812 Non-pressure chronic ulcer of other part of right lower leg with fat layer exposed; I70.234 Atherosclerosis of native arteries of right leg with ulceration of heel and midfoot; E10.51 Type 1 diabetes mellitus with diabetic peripheral angiopathy without gangrene; E10.42 Type 1 diabetes mellitus with diabetic polyneuropathy; E10.610 Type 1 diabetes mellitus with diabetic neuropathic arthropathy; L89.92 Pressure ulcer of unspecified site, stage 2 ==

== ENCOUNTER 2023-01-10 00:50 | Day surgery (SDC) | payer MEDICARE, OTHER | END 2023-01-10 22:44 | disposition home or self-care (01) | LOC: WOUND 00:50 | DX: I87.2 Venous insufficiency (chronic) (peripheral) (principal); L97.512 Non-pressure chronic ulcer of other part of right foot with fat layer exposed; L97.812 Non-pressure chronic ulcer of other part of right lower leg with fat layer exposed; E10.621 Type 1 diabetes mellitus with foot ulcer; E10.622 Type 1 diabetes mellitus with other skin ulcer; E10.51 Type 1 diabetes mellitus with diabetic peripheral angiopathy without gangrene; I70.234 Atherosclerosis of native arteries of right leg with ulceration of heel and midfoot; E10.42 Type 1 diabetes mellitus with diabetic polyneuropathy; L89.92 Pressure ulcer of unspecified site, stage 2 | CPT/HCPCS: A9270 ==

== ENCOUNTER 2023-01-17 02:27 | Day surgery (SDC) | payer MEDICARE, OTHER | END 2023-01-17 22:43 | disposition home or self-care (01) | LOC: WOUND 02:27 | DX: E10.621 Type 1 diabetes mellitus with foot ulcer (principal); E10.622 Type 1 diabetes mellitus with other skin ulcer; L97.412 Non-pressure chronic ulcer of right heel and midfoot with fat layer exposed; L97.812 Non-pressure chronic ulcer of other part of right lower leg with fat layer exposed; I87.2 Venous insufficiency (chronic) (peripheral); I70.234 Atherosclerosis of native arteries of right leg with ulceration of heel and midfoot; E10.42 Type 1 diabetes mellitus with diabetic polyneuropathy; E10.610 Type 1 diabetes mellitus with diabetic neuropathic arthropathy; L89.92 Pressure ulcer of unspecified site, stage 2 ==

== ENCOUNTER 2023-01-24 02:41 | Day surgery (SDC) | payer MEDICARE, OTHER | END 2023-01-24 22:53 | disposition home or self-care (01) | LOC: WOUND 02:41 | DX: E10.621 Type 1 diabetes mellitus with foot ulcer (principal); L97.512 Non-pressure chronic ulcer of other part of right foot with fat layer exposed; L97.412 Non-pressure chronic ulcer of right heel and midfoot with fat layer exposed; L97.812 Non-pressure chronic ulcer of other part of right lower leg with fat layer exposed; E10.622 Type 1 diabetes mellitus with other skin ulcer; I87.2 Venous insufficiency (chronic) (peripheral); E10.51 Type 1 diabetes mellitus with diabetic peripheral angiopathy without gangrene; I70.234 Atherosclerosis of native arteries of right leg with ulceration of heel and midfoot; E10.42 Type 1 diabetes mellitus with diabetic polyneuropathy; E10.610 Type 1 diabetes mellitus with diabetic neuropathic arthropathy; L89.92 Pressure ulcer of unspecified site, stage 2 ==

== ENCOUNTER 2023-01-31 01:48 | Day surgery (SDC) | payer MEDICARE, OTHER | END 2023-01-31 22:35 | disposition home or self-care (01) | LOC: WOUND 01:48 | DX: E10.621 Type 1 diabetes mellitus with foot ulcer (principal); E10.622 Type 1 diabetes mellitus with other skin ulcer; L97.412 Non-pressure chronic ulcer of right heel and midfoot with fat layer exposed; L97.812 Non-pressure chronic ulcer of other part of right lower leg with fat layer exposed; I87.2 Venous insufficiency (chronic) (peripheral); I70.234 Atherosclerosis of native arteries of right leg with ulceration of heel and midfoot; E10.51 Type 1 diabetes mellitus with diabetic peripheral angiopathy without gangrene; E10.610 Type 1 diabetes mellitus with diabetic neuropathic arthropathy; E10.42 Type 1 diabetes mellitus with diabetic polyneuropathy; T23.262D Burn of second degree of back of left hand, subsequent encounter; L89.892 Pressure ulcer of other site, stage 2 | CPT/HCPCS: A9270 ==

== ENCOUNTER 2023-02-14 00:46 | Day surgery (SDC) | payer MEDICARE, OTHER | END 2023-02-14 22:40 | disposition home or self-care (01) | LOC: WOUND 00:46 | DX: I70.234 Atherosclerosis of native arteries of right leg with ulceration of heel and midfoot (principal); E11.621 Type 2 diabetes mellitus with foot ulcer; E11.622 Type 2 diabetes mellitus with other skin ulcer; L97.412 Non-pressure chronic ulcer of right heel and midfoot with fat layer exposed; L97.812 Non-pressure chronic ulcer of other part of right lower leg with fat layer exposed; I87.2 Venous insufficiency (chronic) (peripheral); E11.42 Type 2 diabetes mellitus with diabetic polyneuropathy; E11.610 Type 2 diabetes mellitus with diabetic neuropathic arthropathy; T23.262D Burn of second degree of back of left hand, subsequent encounter; L89.92 Pressure ulcer of unspecified site, stage 2; E11.65 Type 2 diabetes mellitus with hyperglycemia; E87.1 Hypo-osmolality and hyponatremia; E11.59 Type 2 diabetes mellitus with other circulatory complications | CPT/HCPCS: 36415; 80048; 83036; A9270 ==

== ENCOUNTER 2023-02-21 01:07 | Day surgery (SDC) | payer MEDICARE, OTHER | END 2023-02-21 22:52 | disposition home or self-care (01) | LOC: WOUND 01:07 | DX: E10.621 Type 1 diabetes mellitus with foot ulcer (principal); L97.812 Non-pressure chronic ulcer of other part of right lower leg with fat layer exposed; E10.622 Type 1 diabetes mellitus with other skin ulcer; I70.234 Atherosclerosis of native arteries of right leg with ulceration of heel and midfoot; L97.412 Non-pressure chronic ulcer of right heel and midfoot with fat layer exposed; L89.92 Pressure ulcer of unspecified site, stage 2; I87.2 Venous insufficiency (chronic) (peripheral); E10.42 Type 1 diabetes mellitus with diabetic polyneuropathy; E10.610 Type 1 diabetes mellitus with diabetic neuropathic arthropathy | CPT/HCPCS: G0463 ==

== ENCOUNTER 2023-02-28 02:46 | Day surgery (SDC) | payer MEDICARE, OTHER | END 2023-02-28 23:23 | disposition home or self-care (01) | LOC: WOUND 02:46 | DX: E10.621 Type 1 diabetes mellitus with foot ulcer (principal); L97.412 Non-pressure chronic ulcer of right heel and midfoot with fat layer exposed; L97.512 Non-pressure chronic ulcer of other part of right foot with fat layer exposed; E10.622 Type 1 diabetes mellitus with other skin ulcer; L97.822 Non-pressure chronic ulcer of other part of left lower leg with fat layer exposed; L89.322 Pressure ulcer of left buttock, stage 2; L89.892 Pressure ulcer of other site, stage 2; I87.2 Venous insufficiency (chronic) (peripheral); E10.51 Type 1 diabetes mellitus with diabetic peripheral angiopathy without gangrene; I70.234 Atherosclerosis of native arteries of right leg with ulceration of heel and midfoot; E10.42 Type 1 diabetes mellitus with diabetic polyneuropathy; E10.610 Type 1 diabetes mellitus with diabetic neuropathic arthropathy | CPT/HCPCS: A9270; G0463 ==

== ENCOUNTER 2023-03-07 01:42 | Day surgery (SDC) | payer MEDICARE, OTHER | END 2023-03-07 22:57 | disposition home or self-care (01) | LOC: WOUND 01:42 | DX: E10.621 Type 1 diabetes mellitus with foot ulcer (principal); L97.412 Non-pressure chronic ulcer of right heel and midfoot with fat layer exposed; L97.512 Non-pressure chronic ulcer of other part of right foot with fat layer exposed; E10.622 Type 1 diabetes mellitus with other skin ulcer; L97.822 Non-pressure chronic ulcer of other part of left lower leg with fat layer exposed; L89.892 Pressure ulcer of other site, stage 2; L89.322 Pressure ulcer of left buttock, stage 2; I87.2 Venous insufficiency (chronic) (peripheral); E10.51 Type 1 diabetes mellitus with diabetic peripheral angiopathy without gangrene; I70.234 Atherosclerosis of native arteries of right leg with ulceration of heel and midfoot; E04.2 Nontoxic multinodular goiter; E10.610 Type 1 diabetes mellitus with diabetic neuropathic arthropathy | CPT/HCPCS: A9270 ==

== ENCOUNTER 2023-03-15 00:41 | Day surgery (SDC) | payer MEDICARE, OTHER | END 2023-03-16 22:43 | disposition home or self-care (01) | LOC: WOUND 00:41 | DX: E10.621 Type 1 diabetes mellitus with foot ulcer (principal); E10.622 Type 1 diabetes mellitus with other skin ulcer; L97.412 Non-pressure chronic ulcer of right heel and midfoot with fat layer exposed; L97.812 Non-pressure chronic ulcer of other part of right lower leg with fat layer exposed; L89.92 Pressure ulcer of unspecified site, stage 2; L89.322 Pressure ulcer of left buttock, stage 2; I87.2 Venous insufficiency (chronic) (peripheral); E10.51 Type 1 diabetes mellitus with diabetic peripheral angiopathy without gangrene; E10.42 Type 1 diabetes mellitus with diabetic polyneuropathy; E10.610 Type 1 diabetes mellitus with diabetic neuropathic arthropathy ==

== ENCOUNTER 2023-03-28 02:47 | Day surgery (SDC) | payer MEDICARE, OTHER | END 2023-03-28 23:41 | disposition home or self-care (01) | LOC: WOUND 02:47 | PROC: 5A02115 Assistance with Cardiac Output using Pulsatile Compression, Intermittent (ICD-10-PCS; principal; 2023-03-28) | DX: E11.51 Type 2 diabetes mellitus with diabetic peripheral angiopathy without gangrene (principal); L98.492 Non-pressure chronic ulcer of skin of other sites with fat layer exposed; I70.25 Atherosclerosis of native arteries of other extremities with ulceration; E11.621 Type 2 diabetes mellitus with foot ulcer; L97.512 Non-pressure chronic ulcer of other part of right foot with fat layer exposed; L89.892 Pressure ulcer of other site, stage 2; L03.115 Cellulitis of right lower limb; B48.8 Other specified mycoses; Z89.512 Acquired absence of left leg below knee ==

== ENCOUNTER 2023-04-11 03:37 | Day surgery (SDC) | payer MEDICARE, OTHER | END 2023-04-11 22:45 | disposition home or self-care (01) | LOC: WOUND 03:37 | DX: E10.621 Type 1 diabetes mellitus with foot ulcer (principal); L97.512 Non-pressure chronic ulcer of other part of right foot with fat layer exposed; L97.412 Non-pressure chronic ulcer of right heel and midfoot with fat layer exposed; L89.323 Pressure ulcer of left buttock, stage 3; E10.622 Type 1 diabetes mellitus with other skin ulcer; L97.812 Non-pressure chronic ulcer of other part of right lower leg with fat layer exposed; I87.2 Venous insufficiency (chronic) (peripheral); E10.51 Type 1 diabetes mellitus with diabetic peripheral angiopathy without gangrene; I70.234 Atherosclerosis of native arteries of right leg with ulceration of heel and midfoot; E10.42 Type 1 diabetes mellitus with diabetic polyneuropathy; E10.610 Type 1 diabetes mellitus with diabetic neuropathic arthropathy | CPT/HCPCS: G0463 ==

== ENCOUNTER 2023-05-09 01:40 | Day surgery (SDC) | payer MEDICARE, OTHER | END 2023-05-09 23:06 | disposition home or self-care (01) | LOC: WOUND 01:40 | DX: E10.621 Type 1 diabetes mellitus with foot ulcer (principal); L97.512 Non-pressure chronic ulcer of other part of right foot with fat layer exposed; E10.622 Type 1 diabetes mellitus with other skin ulcer; L97.912 Non-pressure chronic ulcer of unspecified part of right lower leg with fat layer exposed; L89.893 Pressure ulcer of other site, stage 3; L97.412 Non-pressure chronic ulcer of right heel and midfoot with fat layer exposed; L97.812 Non-pressure chronic ulcer of other part of right lower leg with fat layer exposed; L89.92 Pressure ulcer of unspecified site, stage 2; I87.2 Venous insufficiency (chronic) (peripheral); I70.234 Atherosclerosis of native arteries of right leg with ulceration of heel and midfoot; E10.42 Type 1 diabetes mellitus with diabetic polyneuropathy; E10.610 Type 1 diabetes mellitus with diabetic neuropathic arthropathy | CPT/HCPCS: G0463 ==

== ENCOUNTER 2023-05-14 13:13 | Emergency (ER) | payer MEDICARE, OTHER ==
[~2023-05-14] VITALS: Ht 170.2 cm; Wt 98.4 kg
[2023-05-14 16:27] VITALS: BP 148/62
[2023-05-14 16:51] LABS: BASOPHILS ABSOLUTE AUTO 0.06 K/mm3 (0.00-0.23); BASOPHILS PERCENT AUTO 1 % (0-2); EOSINOPHILS ABSOLUTE AUTO 0.37 K/mm3 (0.00-0.68); EOSINOPHILS PERCENT AUTO 4 % (0-6); Hematocrit 39.1 % (37.0-53.0); Hemoglobin 13.6 g/dL (13.5-17.5); IMMATURE GRAN ABSOLUTE AUTO 0.09 K/mm3 (0.00-0.10); IMMATURE GRAN PERCENT AUTO 1 % (0-1); LYMPHOCYTES ABSOLUTE AUTO 1.12 K/mm3 (0.84-5.20); LYMPHOCYTES PERCENT AUTO 12 % (21-46); MONOCYTES ABSOLUTE AUTO 1.12 K/mm3 (0.16-1.47); MONOCYTES PERCENT AUTO 12 % (4-13); Mean Corpuscular HGB 30.2 pg (26.0-34.0); Mean Corpuscular HGB Conc 34.8 g/dL (31.5-36.5); Mean Corpuscular Volume 87 fL (80-100); Mean Platelet Volume 10.4 fL (9.1-12.4); NEUTROPHILS PERCENT AUTO 72 % (41-73); Platelet Count 330 K/mm3 (150-400); RDW Coefficient Variation 13.2 % (11.7-14.2); RDW Standard Deviation 41.4 fL (35.1-46.3); White Blood Cell Count 9.76 K/mm3 (4.00-11.30)
[2023-05-14] MEDS ORDERED: AMOCLA875 PO (17:06)
[2023-05-14 17:26] LABS: Albumin, Blood 2.7 g/dL (3.4-5.0); Albumin/Globulin Ratio 0.6 (0.8-1.8); Bilirubin, Total 0.5 mg/dL (0.1-1.0); Bun/Creatinine Ratio 28.9 (12.0-20.0); Calcium, Blood 8.8 mg/dL (8.5-10.1); Creatinine, Blood 1.28 mg/dL (0.60-1.20); Globulin, Blood 4.8 g/dL (2.2-4.0); Potassium, Blood 4.6 mmol/L (3.5-5.5); Total Protein, Blood 7.5 g/dL (6.4-8.2)
== END 2023-05-14 17:32 | disposition home or self-care (01) ==
LOC: ER 13:13
PROVIDERS: Physician Assistant
DX: L03.115 Cellulitis of right lower limb (principal); E10.51 Type 1 diabetes mellitus with diabetic peripheral angiopathy without gangrene; E10.42 Type 1 diabetes mellitus with diabetic polyneuropathy; I50.9 Heart failure, unspecified; Z89.512 Acquired absence of left leg below knee; Z88.2 Allergy status to sulfonamides; Z88.5 Allergy status to narcotic agent; Z79.899 Other long term (current) drug therapy; Z79.01 Long term (current) use of anticoagulants; Z79.4 Long term (current) use of insulin; Z95.0 Presence of cardiac pacemaker; Z86.73 Personal history of transient ischemic attack (TIA), and cerebral infarction without residual deficits
CPT/HCPCS: 80053; 85025; 93926; 99284-25; A9270

== ENCOUNTER 2023-05-16 01:09 | Day surgery (SDC) | payer MEDICARE, OTHER ==
[~2023-05-16 01:09] MED LIST changes: +AMOCLA875 PO
== END 2023-05-16 22:40 | disposition home or self-care (01) ==
LOC: WOUND
DX: E10.621 Type 1 diabetes mellitus with foot ulcer (principal); L97.412 Non-pressure chronic ulcer of right heel and midfoot with fat layer exposed; E10.622 Type 1 diabetes mellitus with other skin ulcer; L97.812 Non-pressure chronic ulcer of other part of right lower leg with fat layer exposed; L89.92 Pressure ulcer of unspecified site, stage 2; I87.2 Venous insufficiency (chronic) (peripheral); I70.234 Atherosclerosis of native arteries of right leg with ulceration of heel and midfoot; E10.42 Type 1 diabetes mellitus with diabetic polyneuropathy; E10.610 Type 1 diabetes mellitus with diabetic neuropathic arthropathy
CPT/HCPCS: G0463

== ENCOUNTER 2023-05-23 03:02 | Day surgery (SDC) | payer MEDICARE, OTHER | END 2023-05-23 22:52 | disposition home or self-care (01) | LOC: WOUND 03:02 | DX: E10.621 Type 1 diabetes mellitus with foot ulcer (principal); L97.412 Non-pressure chronic ulcer of right heel and midfoot with fat layer exposed; E10.622 Type 1 diabetes mellitus with other skin ulcer; L97.812 Non-pressure chronic ulcer of other part of right lower leg with fat layer exposed; L89.92 Pressure ulcer of unspecified site, stage 2; I87.2 Venous insufficiency (chronic) (peripheral); E10.51 Type 1 diabetes mellitus with diabetic peripheral angiopathy without gangrene; I70.234 Atherosclerosis of native arteries of right leg with ulceration of heel and midfoot; E10.42 Type 1 diabetes mellitus with diabetic polyneuropathy; E10.610 Type 1 diabetes mellitus with diabetic neuropathic arthropathy | CPT/HCPCS: G0463 ==

== ENCOUNTER 2023-05-30 04:21 | Day surgery (SDC) | payer MEDICARE, OTHER | END 2023-05-30 23:05 | disposition home or self-care (01) | LOC: WOUND 04:21 | DX: E10.51 Type 1 diabetes mellitus with diabetic peripheral angiopathy without gangrene (principal); L97.812 Non-pressure chronic ulcer of other part of right lower leg with fat layer exposed; I70.238 Atherosclerosis of native arteries of right leg with ulceration of other part of lower leg; L97.512 Non-pressure chronic ulcer of other part of right foot with fat layer exposed; E10.42 Type 1 diabetes mellitus with diabetic polyneuropathy | CPT/HCPCS: G0463 ==

== ENCOUNTER 2023-05-30 13:46 | Inpatient (IN) | payer MEDICARE, OTHER ==
[~2023-05-30] VITALS: Ht 170.2 cm; Wt 90.0 kg
[~2023-05-30 13:46] MED LIST changes: -INSUASPI SC; +NOVOLOG FL100 UNIT/3 SC
[2023-05-30 14:37] LABS: BASOPHILS ABSOLUTE AUTO 0.07 K/mm3 (0.00-0.23); BASOPHILS PERCENT AUTO 1 % (0-2); EOSINOPHILS ABSOLUTE AUTO 0.46 K/mm3 (0.00-0.68); EOSINOPHILS PERCENT AUTO 4 % (0-6); Hematocrit 39.7 % (37.0-53.0); Hemoglobin 14.1 g/dL (13.5-17.5); IMMATURE GRAN ABSOLUTE AUTO 0.11 K/mm3 (0.00-0.10); IMMATURE GRAN PERCENT AUTO 1 % (0-1); LYMPHOCYTES ABSOLUTE AUTO 1.08 K/mm3 (0.84-5.20); LYMPHOCYTES PERCENT AUTO 9 % (21-46); MONOCYTES ABSOLUTE AUTO 1.15 K/mm3 (0.16-1.47); MONOCYTES PERCENT AUTO 10 % (4-13); Mean Corpuscular HGB 30.7 pg (26.0-34.0); Mean Corpuscular HGB Conc 35.5 g/dL (31.5-36.5); Mean Corpuscular Volume 86 fL (80-100); Mean Platelet Volume 10.6 fL (9.1-12.4); NEUTROPHILS ABSOLUTE AUTO 8.83 K/mm3 (1.96-9.15); NEUTROPHILS PERCENT AUTO 76 % (41-73); Platelet Count 354 K/mm3 (150-400); RDW Coefficient Variation 13.3 % (11.7-14.2); RDW Standard Deviation 41.5 fL (35.1-46.3)
[2023-05-30 14:54] LABS: Albumin, Blood 2.7 g/dL (3.4-5.0); Albumin/Globulin Ratio 0.5 (0.8-1.8); Bilirubin, Total 0.6 mg/dL (0.1-1.0); Bun/Creatinine Ratio 41.7 (12.0-20.0); Calcium, Blood 8.9 mg/dL (8.5-10.1); Creatinine, Blood 1.68 mg/dL (0.60-1.20); Globulin, Blood 5.2 g/dL (2.2-4.0); Potassium, Blood 5.5 mmol/L (3.5-5.5); Total Protein, Blood 7.9 g/dL (6.4-8.2)
[2023-05-30 19:32] LABS: Source, Urine Clean Catch
[2023-05-30 19:41] LABS: Appearance, Urine Clear (Clear); Bilirubin, Urine Neg (Neg); Blood, Urine 2+ (Neg); Color, Urine Yellow (P-Yellow); Glucose Qualitative, Urine 2+ (Neg); Ketones, Urine Neg (Neg); Leukocyte Esterase, Urine Neg (Neg); Nitrite, Urine Neg (Neg); Protein, Urine 2+ (Neg); Specific Gravity, Urine 1.015 (1.003-1.022); Urobilinogen, Urine NORM (Normal)
[2023-05-30 19:53] LABS: White Blood Cells, Urine 0-2 /hpf (0-5)
[2023-05-30 19:54] LABS: Bacteria Few /hpf; Squamous Epithelial Cells Few /hpf (Few)
[2023-05-30 20:08] VITALS: BP 142/66
--- NOTE | 2023-05-30 21:57 | NUR ---
PT BROUGHT IN [facility] DNR STATUS TWO NURSE VERIFY
[2023-05-31 04:28] VITALS: BP 138/58
--- NOTE | 2023-05-31 05:49 | NUR ---
PT ADMITTED AROUND 1999 LAST NIGHT. AOX4, BEDREST, ANXIOUS REGARDING INSULIN AND MAKING SURE HE WILL HAVE IT AVAILABLE FOR MEALS. EDUCATED PT AND SPOUSE ABOUT HOME MEDICATIONS, BOTH AGREE TO ONLY TAKE MEDS ORDERED IN THE HOSPITAL. FIRE SAFETY REVIEWED. PT AND SPOUSE ALSO AGREE THAT SPOUSE IS NO LONGER ABLE TO PROVIDE CARE FOR PT, SPOUSE HOPES FOR ALF DISCHARGE SO PT WILL RECEIVE NEEDED CARE AND ASSISTANCE. MANY WOUNDS NOTED TO PATIENT RLE, WELL TO COCCYX AND GLUTEAL FOLDS.
[2023-05-31 06:03] LABS: BASOPHILS ABSOLUTE AUTO 0.05 K/mm3 (0.00-0.23); BASOPHILS PERCENT AUTO 0 % (0-2); EOSINOPHILS ABSOLUTE AUTO 0.47 K/mm3 (0.00-0.68); EOSINOPHILS PERCENT AUTO 4 % (0-6); Hemoglobin 12.5 g/dL (13.5-17.5); IMMATURE GRAN ABSOLUTE AUTO 0.09 K/mm3 (0.00-0.10); IMMATURE GRAN PERCENT AUTO 1 % (0-1); LYMPHOCYTES ABSOLUTE AUTO 1.14 K/mm3 (0.84-5.20); LYMPHOCYTES PERCENT AUTO 10 % (21-46); MONOCYTES ABSOLUTE AUTO 1.59 K/mm3 (0.16-1.47); MONOCYTES PERCENT AUTO 14 % (4-13); Mean Corpuscular HGB 30.4 pg (26.0-34.0); Mean Corpuscular HGB Conc 34.7 g/dL (31.5-36.5); Mean Corpuscular Volume 88 fL (80-100); Mean Platelet Volume 11.1 fL (9.1-12.4); NEUTROPHILS ABSOLUTE AUTO 8.04 K/mm3 (1.96-9.15); NEUTROPHILS PERCENT AUTO 71 % (41-73); Platelet Count 331 K/mm3 (150-400); RDW Coefficient Variation 13.4 % (11.7-14.2); RDW Standard Deviation 43.2 fL (35.1-46.3); Red Blood Cell Count 4.11 M/mm3 (4.30-5.90); White Blood Cell Count 11.38 K/mm3 (4.00-11.30)
[2023-05-31 06:29] LABS: Albumin, Blood 2.4 g/dL (3.4-5.0); Albumin/Globulin Ratio 0.5 (0.8-1.8); Bilirubin, Total 0.4 mg/dL (0.1-1.0); Bun/Creatinine Ratio 41.1 (12.0-20.0); Calcium, Blood 8.6 mg/dL (8.5-10.1); Creatinine, Blood 1.51 mg/dL (0.60-1.20); Globulin, Blood 4.4 g/dL (2.2-4.0); Magnesium, Blood 2.3 mg/dL (1.6-2.4); Total Protein, Blood 6.8 g/dL (6.4-8.2)
[2023-05-31 07:36] VITALS: BP 96/48
[2023-05-31 16:44] VITALS: BP 122/56
--- NOTE | 2023-05-31 17:02 | NUR ---
SHIFT SUMMARY: Pt remains A&O x3 this shift. Right heal pain managed with po Tylenol. Repositioned for comfort. RLE elevated. Podiatry consult complete. VSS, Resp even nonlabored on RA. Educated on policy of accuchecks, pt verbalizes understanding. IVF infusing as ordered. Pt voiding per urinal, incontinent at times. Agrees to brief only at night. Pain and safety maintained this shift. Call light in reach. Ignition/fire safety complete with Q 1 hour rounds. Pt resting comfortably in bed. No c/o verbalized at this time. Will continue to follow.
[2023-05-31 19:53] VITALS: BP 131/48
[2023-06-01 05:01] VITALS: BP 146/57
[2023-06-01 05:32] LABS: Hematocrit 31.8 % (37.0-53.0); Mean Corpuscular HGB 30.6 pg (26.0-34.0); Mean Corpuscular HGB Conc 34.6 g/dL (31.5-36.5); Mean Corpuscular Volume 88 fL (80-100); Mean Platelet Volume 10.6 fL (9.1-12.4); Platelet Count 292 K/mm3 (150-400); RDW Coefficient Variation 13.6 % (11.7-14.2); RDW Standard Deviation 44.3 fL (35.1-46.3); White Blood Cell Count 10.22 K/mm3 (4.00-11.30)
[2023-06-01 06:00] LABS: Anion Gap 6 mmol/L (6-16); Blood Urea Nitrogen 54 mg/dL (8-24); CO2, Blood 20 mmol/L (21-32); Calcium, Blood 8.1 mg/dL (8.5-10.1); Chloride, Blood 112 mmol/L (98-108); Creatinine, Blood 1.35 mg/dL (0.60-1.20); Glomerular Filtration Rate 54 (60-); Glucose, Blood 134 mg/dL (70-99); Phosphorus, Blood 3.5 mg/dL (2.5-4.9); Potassium, Blood 4.8 mmol/L (3.5-5.5); Sodium, Blood 138 mmol/L (136-145)
[2023-06-01 07:28] VITALS: BP 122/54
--- NOTE | 2023-06-01 07:30 | NUR ---
TYLENOL MODERATELY EFFECTIVE FOR RLE AND R HIP PAIN. PT COMPLAINS OF PAIN MOSTLY WHEN REPOSITIONING. WOUNDS HAVE SCANT OUTPUT. UNEVENTFUL NIGHT. NS RUNNING AT 125. INCONTINENT OF BLADDER, NO BM. FIRE SAFETY REVIEWED.
[2023-06-01 15:43] VITALS: BP 120/40
--- NOTE | 2023-06-01 15:53 | NUR ---
THE PATIENT WAS DISCHARGED HOME WITH HIS FAMILY, AFTER DICHARGE INSTRUCTION WERE GIVEN TO THE PATIENT AND HIS FAMILY. THE PATIENT'S PORT WAS DISCONTINUED. THE PATIENT WAS WHEELED OUT IN HIS OWN WHEELCHAIR
--- NOTE | 2023-06-01 18:16 | NUR ---
THE PATIENT IA A7O X3, THE PATIENT HAS BEEN EDUCATED ON FIRE AND SOURCES OF IGNITION, THE PATIENT HAS TWO PLACES THAT HAVE OPEN WOUNDS ON HIS BUTTOX AREA, PICTURES HAVE BEEN TAKEN OF THE ONES DISCOVERED TODAY AND PUT INTO THE PATIENT'S CHART. THE PATIENT WAS BLADDED SCANED AT 1450 THE READING WAS 1151, A CATHER ORDER WAS GOTTEN AND WE FAILED TO INCERT THE CATHER, MULTIPLE TRIES HAVE FAILED AND DOCTOR DAMON HAS TAKEN OVER THE TASK. A SECOND BLADDER SCAN WAS DONE AT 1718, TOTAL 1288. THE PATIENT IS EATING WELL AND IS IN GOOD SPIRITS.
[2023-06-01 19:33] VITALS: BP 136/59
[2023-06-02 05:20] VITALS: BP 142/101
--- NOTE | 2023-06-02 05:24 | NUR ---
SUMMARY- PT AAOX2 THIS SHIFT. ORIENTED TO SELF AND PLACE ONLY. PT KNEW THE MONTH AND YEAR, BUT COULD NOT REMEMBER THE DAY. PT WAS UNSURE ABOUT HIS SITUATION. HOWELL CATHETER PATENT AND DRAINING WELL. PT'S PAIN WAS MODERATELY CONTROLLED THIS SHIFT WITH ONLY TYLENOL. PT ALSO HAD A HARD TIME FALLY ASLEEP TONIGHT. RN ENSURED FIRE SAFETY EVERY HOUR WITH ROUNDS.
[2023-06-02 06:14] LABS: Bun/Creatinine Ratio 36.8 (12.0-20.0); Calcium, Blood 7.8 mg/dL (8.5-10.1); Creatinine, Blood 1.06 mg/dL (0.60-1.20); Potassium, Blood 4.8 mmol/L (3.5-5.5)
[2023-06-02 07:54] VITALS: BP 144/57
[2023-06-02 16:12] VITALS: BP 157/56
[2023-06-02 19:23] VITALS: BP 139/52
--- NOTE | 2023-06-02 19:30 | NUR ---
SHIFT SUMMARY: PT A/O X 2, BEDREST, NWB. PT PLEASANT AND COOPERATIVE WITH CARE, VERY FORGETFUL AND NEEDED FREQUENT RE-ORIENTATION TO PLACE AND SITUATION. PT URINE DRAINING VIA CATHETER, WAS CRANBERRY COLORED THIS MORNING BUT IS NOW YELLOW. PT HAS MILD SWELLING TO PENIS. RENETTA VALDEZ'D TODAY IN PREPARATION FOR REVASC SURGERY ON SATURDAY. PT HAD NO EVIDENT USE OF IGNITION SOURCES WHILE ROUNDING TODAY.
[2023-06-03 05:19] LABS: Hematocrit 31.4 % (37.0-53.0); Hemoglobin 10.7 g/dL (13.5-17.5); Mean Corpuscular HGB 30.3 pg (26.0-34.0); Mean Corpuscular HGB Conc 34.1 g/dL (31.5-36.5); Mean Corpuscular Volume 89 fL (80-100); Mean Platelet Volume 10.2 fL (9.1-12.4); Platelet Count 302 K/mm3 (150-400); RDW Coefficient Variation 13.7 % (11.7-14.2); RDW Standard Deviation 44.9 fL (35.1-46.3); Red Blood Cell Count 3.53 M/mm3 (4.30-5.90)
[2023-06-03 05:48] LABS: Albumin, Blood 1.9 g/dL (3.4-5.0); Anion Gap 5 mmol/L (6-16); Blood Urea Nitrogen 33 mg/dL (8-24); Bun/Creatinine Ratio 29.7 (12.0-20.0); CO2, Blood 21 mmol/L (21-32); Calcium, Blood 8.2 mg/dL (8.5-10.1); Chloride, Blood 112 mmol/L (98-108); Creatinine, Blood 1.11 mg/dL (0.60-1.20); Glomerular Filtration Rate 69 (60-); Glucose, Blood 156 mg/dL (70-99); Potassium, Blood 4.8 mmol/L (3.5-5.5); Sodium, Blood 138 mmol/L (136-145)
--- NOTE | 2023-06-03 06:49 | NUR ---
NO SIGNIFICANT CHANGES TO PATIENT CONDITION DURING MY SHIFT. PT CONTINUES TO BE CONFUSED AND IRRITABLE. TYLENOL GIVEN FOR PAIN. MULTIPLE WOUNDS. HOWELL IS PATENT, LEVEL VIAL MARKER OUTPUT TODAY THAN YESTERDAY. UNEVENTFUL NIGHT. FIRE SAFETY REVIEWED.
[2023-06-03 07:49] VITALS: BP 140/60
--- NOTE | 2023-06-03 18:12 | NUR ---
SHIFT SUMMARY PATIENT ORIENTED TO SELF, CONFUSED AND IRRITABLE AT TIMES. NAPPED OFF AND ON T/O THE SHIFT. GLUCOSE READING OF 44 OBTAINED AT 1707, OJ GIVEN X2. PT REMAINED UNRESPONSIVE/DROWSY, CLAMMY. D50 PUSH ADMINISTERED BY RN AND PT CAME TO. BLOOD SUGAR INCREASED TO 141. VITALS REVIEWED. APPETITE IS GOOD. WOUND CARE COMPLETED BY MIGUEL. PATIENT REFUSED TO PARTICIPATE IN PHYSICAL THERAPY. PT CURRENTLY SITTING UP IN BED EATING DINNER. CALL LIGHT IN REACH. SOURCES OF IGNITION ASSESSED FOR DURING HOURLY ROUNDING.
[2023-06-03 20:58] VITALS: BP 126/49
[2023-06-04 04:24] VITALS: BP 149/53
[2023-06-04 05:03] LABS: BASOPHILS ABSOLUTE AUTO 0.03 K/mm3 (0.00-0.23); BASOPHILS PERCENT AUTO 0 % (0-2); EOSINOPHILS ABSOLUTE AUTO 0.46 K/mm3 (0.00-0.68); EOSINOPHILS PERCENT AUTO 4 % (0-6); Hemoglobin 10.5 g/dL (13.5-17.5); IMMATURE GRAN ABSOLUTE AUTO 0.12 K/mm3 (0.00-0.10); IMMATURE GRAN PERCENT AUTO 1 % (0-1); LYMPHOCYTES ABSOLUTE AUTO 1.04 K/mm3 (0.84-5.20); LYMPHOCYTES PERCENT AUTO 8 % (21-46); MONOCYTES ABSOLUTE AUTO 1.55 K/mm3 (0.16-1.47); MONOCYTES PERCENT AUTO 12 % (4-13); Mean Corpuscular HGB 30.5 pg (26.0-34.0); Mean Corpuscular Volume 87 fL (80-100); Mean Platelet Volume 9.8 fL (9.1-12.4); NEUTROPHILS ABSOLUTE AUTO 9.65 K/mm3 (1.96-9.15); NEUTROPHILS PERCENT AUTO 75 % (41-73); Platelet Count 301 K/mm3 (150-400); RDW Coefficient Variation 13.7 % (11.7-14.2); RDW Standard Deviation 42.5 fL (35.1-46.3); Red Blood Cell Count 3.44 M/mm3 (4.30-5.90); White Blood Cell Count 12.85 K/mm3 (4.00-11.30)
[2023-06-04 05:47] LABS: Bun/Creatinine Ratio 33.6 (12.0-20.0); Calcium, Blood 8.3 mg/dL (8.5-10.1); Creatinine, Blood 1.07 mg/dL (0.60-1.20); Potassium, Blood 4.7 mmol/L (3.5-5.5)
[2023-06-04 07:26] VITALS: BP 132/51
[2023-06-04 10:46] LABS: Percent Saturation 12.7 % (20.0-50.0)
[2023-06-04 14:40] VITALS: BP 122/50
[2023-06-04 15:51] VITALS: BP 126/49
--- NOTE | 2023-06-04 18:33 | NUR ---
SHIFT SUMMARY PATIENT A&OX2 TO HIMSELF AND PLACE. IRRITABILITY NOTED T/O SHIFT. MEDICATED WITH TYLENOL FOR PAIN. CBG OF 58 OBTAINED AT 1637, NO S/S. ICE CREAM X2 GIVEN AND CBG INCREASED TO 65 AND THEN 100. PT'S PERSONAL GLUCOMETER DOES NOT MATCH READINGS OF HOSPITAL GLUCOMETER. D50 PUSH PRN ORDERED AND ADDED TO EMAR. PATIENT COMPLAINED OF SOB - RR WAS 26, NO ABNORMAL LUNG SOUNDS. RT ADMINISTERED ALBUTEROL AND LASIX GIVEN PER ORDERS. ASSESSED FOR SOURCES OF IGNITIONS DURING HOURLY ROUNDING. PATIENT CURRENTLY EATING DINNER, CALL LIGHT IN REACH. NPO AT MIDNIGHT FOR REVASCULARIZATION PROCEDURE TOMORROW (POTENTIALLY AT 0800).
[2023-06-04 19:25] VITALS: BP 134/66
--- NOTE | 2023-06-04 21:53 | NUR ---
I SPOKE TO NURSE, CASSIUS, RN TO DETERMINE HER UNDERSTANDING OF ANGIOGRAM WITH AIDA. SHE REPORTED PER SHIFT REPORT, AIDA HAD ALREADY SEEN THIS PT. I RELAYED THAT WE DIDN'T HAVE ANY NOTES OR A CONSULT. I SPOKE TO SHANTEL, ACC AND SHE PULLED UP TOMORROW'S SCHEDULE - AND REPORTED THIS PT WASN'T ON THE SCHEDULE. PT REPORTED HE IS SCHEDULED FOR TOMORROW AM AT 7AM (HOWEVER THIS PROCEDURE SHEET-PERIPHERAL ANGIOGRAM) WAS FOR OP PROCEDURE. I CONTACTED MADONNA, NURSING GUN PERFORATOR LOADER, AND HE ASKED THAT I CONTACT HOSPITALIST VILMA. I SPOKE TO ALLAN LAMBERT AND REVIEWED DR. VELASQUEZ'S NOTE THAT SHE HAD CONSULTED DR. PARRA. FAUSTO REPORTED HE WOULD REVIEW THE CHART, AND SEND DR. PARRA A TEXT VILMA IF HE DETERMINED THIS WAS NEEDED. I ALSO EXPLAINED TO FAUSTO, THAT PT WAS SCHEDULED FOR TOMORROW AM ( AN OP FOR ANGIOGRAM PROCEDURE.) I ALSO REPORTED DR. PARRA IS CURRENTLY IN THE OR FOR A PROCEDURE. I REPORTED THIS INFORMATION TO DAYANA HAMMONDS.
[2023-06-05] VITALS (10 sets, daily range): BP systolic 131–168; BP diastolic 53–104
--- NOTE | 2023-06-05 00:30 | NUR ---
PATIENTS CONFUSION INCREASING, PATIENT VERY OPPOSITIONAL AND PARANOID, REDIRECTED AND ORIENTED, PATIENT OPPOSITIONAL SAYING "THAT NOT TRUE YOUR LIEING TO ME", REPOSTIONED IN BED, LIGHT OFF, PATIENT HAS NOT SLEPT THIS PM
--- NOTE | 2023-06-05 01:48 | NUR ---
patient confusion increasing, hallucinating someone by the name of juanita is in the room, wants to get oob so he can get to the other bed, conituing to re-orient patient, oppositional arguementation and irritation increasing. repostioned, will continue to monitor
--- NOTE | 2023-06-05 03:31 | NUR ---
confusion increasing to impulsive, trying to get out of the bed, easily directed to get back in, bed alarm on, patient has not slept this shift, npo, call light with in reach
--- NOTE | 2023-06-05 04:42 | NUR ---
PATIENTS CONFUSION, DEFENCIVENESS, IRRITABLE THROUGH OUT THE NIGHT, PATIENT HAS INCREASED AGITATION WITH REDIRECTION OF INTERVENTION EDUCATION, PATIENT HALLUCINATED TONIGHT THAT PEOPLE WHERE IN HIS ROOM, NPO FOR REVASCULIATION TODAY, REFUSED TYLENOL THROUGH OUT THE NIGHT, HEART RATE KRIS 51-60, HEEL PROTECTOR ON THE RIGHT FOOT, PATIENT NOW SLEEPING SNORING LOUDLY, BED ALRM ON, CALL LIGHT WITH IN REACH
--- NOTE | 2023-06-05 05:46 | NUR ---
LEFT A MESSAGE WITH DR FIELDS, PATEINT SCREAMING OUT, THREATENTING TO CALL THE DIGITAL MARKETING ASSOCIATE, PATIENT DEMANDING TO LEAVE SO HE CAN GET TO HIS PROCEDURE, CONTINUALLY TRYING TO GET OOB, AGITATION INCREASED, RELAYED TO CHARGE PATIENTS BEHAVIOR
[2023-06-05 06:10] LABS: Hemoglobin 10.3 g/dL (13.5-17.5); Mean Corpuscular HGB 30.5 pg (26.0-34.0); Mean Corpuscular HGB Conc 34.3 g/dL (31.5-36.5); Mean Corpuscular Volume 89 fL (80-100); Mean Platelet Volume 10.6 fL (9.1-12.4); Platelet Count 318 K/mm3 (150-400); RDW Coefficient Variation 13.4 % (11.7-14.2); RDW Standard Deviation 43.8 fL (35.1-46.3); Red Blood Cell Count 3.38 M/mm3 (4.30-5.90); White Blood Cell Count 12.17 K/mm3 (4.00-11.30)
--- NOTE | 2023-06-05 06:16 | NUR ---
PATIENT MEDICATED WITH 5 MG ZYPREXA IM, PATIENT STILL SCREAMING OUT AND CALLING THE PRISON LIBRARIAN, CHARGE NURSE AWARE, WILL RELAY TO PM RN
[2023-06-05 06:35] LABS: Magnesium, Blood 1.7 mg/dL (1.6-2.4)
[2023-06-05 06:56] LABS: Albumin, Blood 1.8 g/dL (3.4-5.0); Albumin/Globulin Ratio 0.4 (0.8-1.8); Bilirubin, Total 0.4 mg/dL (0.1-1.0); Bun/Creatinine Ratio 36.4 (12.0-20.0); Creatinine, Blood 1.07 mg/dL (0.60-1.20); Globulin, Blood 4.1 g/dL (2.2-4.0); Potassium, Blood 4.6 mmol/L (3.5-5.5); Total Protein, Blood 5.9 g/dL (6.4-8.2)
--- NOTE | 2023-06-05 09:37 | NUR ---
PT LEFT THIS MORNING JUST AFTER SHIFT CHANGE FOR REVAS WITH DR. PARRA. REPORT GIVEN TO DRAFTER CIVIL ENGINEERING
--- NOTE | 2023-06-05 16:11 | NUR ---
Bedside report received from Katlin Negro RN. Pt dressing changes done on the right lower extremity, per written wound care orders. Pt tolerated well, appears to be sleeping but wincing occasionally during that. He yells out, is confused, when CNAs repositioning and doing pericare on the pt afterwards. He is now apparently sleeping. Easily arousable, but sleeps in between care.
--- NOTE | 2023-06-05 16:18 | NUR ---
PT AR[facility]IV[facility] THIS MORNING AT 0930A POST REVASCULARIZATION OF RLE, PT HAS LEFT GORIN SITE WITH CLOSURE DEVICE, SITE WAS INTACT WITH NO HEMATOMA OR BLEEDING NOTED, FULLY RECOVERED NOW. PT WAS ALERT AND ORIENTED X2, CONFUSED, GETS EASILY IRRITATED/AGITATED, HALLUCINATING, PICKING AND PULLING ON WIRES AND TUBINGS. PT PULLED BP CUFF AND O2 READER OFF WAS ALSO PULLNG ON HOWELL CATHETER, PT WAS NOT REDIRECTABLE. THREATENS WHEN MOVED AND REPOSITIONED IN BED. REFUSED TO EAT AND DRINK FOR LUNCH. PT WAS ASLEEP POST PROCEDURE AND AFTER LUNCH TIME. DRESSINGS ON RIGHT FOOT WAS CHANGED PER DRESSING CHANGE ORDERS. PT'S HOWELL DRAINING VIA GRAVITY WITH YELLOW URINE. VITALS HRR VPACED, SBP 150-160'S, SATS ABOVE 90% ON RA, AFEBRILE. BED ALARM ON AND BED IN LOWEST POSITION FOR SAFETY. CALL LIGHTS IN REACH REPORT GIVEN TO CAPO ANNE
--- NOTE | 2023-06-05 18:18 | NUR ---
Pt awakens easily, but not readily conversant. Declined any dinner, but did take his coreg with pudding and readily ate the entire cup, although he did need to be fed. He was able to give himself some water to drink, but didn't want very much. Remains sittin gup in bed, HOB elevated 50 degrees after eating and drinking. Son Nicola Razo called, and was updated on pt condition. Pt was told that his son had called to check up on him from [facility].
--- NOTE | 2023-06-05 21:21 | NUR ---
SAFETY & EDUCATION PT & FAMILY EDUCATED RE: IGNITION SOURCES AND RISK OF INJURY WHILE OXYGEN IS IN USE. PT DENIES SMOKING & PT AND FAMILY VERBALIZE UNDERSTANDING.
[2023-06-06 03:45] VITALS: BP 145/58
[2023-06-06 04:22] LABS: Hemoglobin 11.2 g/dL (13.5-17.5); Mean Corpuscular HGB 30.5 pg (26.0-34.0); Mean Corpuscular HGB Conc 33.9 g/dL (31.5-36.5); Mean Corpuscular Volume 90 fL (80-100); Mean Platelet Volume 11.1 fL (9.1-12.4); Platelet Count 330 K/mm3 (150-400); RDW Coefficient Variation 13.6 % (11.7-14.2); RDW Standard Deviation 44.9 fL (35.1-46.3); Red Blood Cell Count 3.67 M/mm3 (4.30-5.90); White Blood Cell Count 12.39 K/mm3 (4.00-11.30)
[2023-06-06 04:45] LABS: Albumin, Blood 1.7 g/dL (3.4-5.0); Albumin/Globulin Ratio 0.4 (0.8-1.8); Bilirubin, Total 0.6 mg/dL (0.1-1.0); Bun/Creatinine Ratio 27.6 (12.0-20.0); Calcium, Blood 8.2 mg/dL (8.5-10.1); Creatinine, Blood 1.05 mg/dL (0.60-1.20); Globulin, Blood 4.4 g/dL (2.2-4.0); Potassium, Blood 4.9 mmol/L (3.5-5.5); Total Protein, Blood 6.1 g/dL (6.4-8.2)
--- NOTE | 2023-06-06 05:15 | NUR ---
SHIFT SUMMARY SEE PREVIOUS NOTE. PT A&Ox4, COMMUNICATES NEEDS APPROPRIATELY. PT SLEPT COMFORTABLY THROUGHOUT SHIFT. BP STABLE, PACED 50's, DENIES CP/PRESSURE. SpO2> 92% RA, DENIES SOB. L GROIN SITE REMAINS WNL, NO BRUISING, OOZING, OR HEMATOMA, DRESSING C/D/I. R PEDAL PULSE PRESENT. NO OTHER EVENTS, WILL REPORT TO ONCOMING RN.
[2023-06-06 07:47] VITALS: BP 172/62
--- NOTE | 2023-06-06 09:36 | NUR ---
CARE ASSUMPTION This RN assumed care at 0700. vital signs stable. tele vpaced 50. patient is alert and oriented. patient is paranoid. patient thinking that the staff at charge station is talking about him. this rn informed the patient that they are not and sat at bedside with patient. patient uses call light inappropriately, pushing call light multiple times. kennethjaclynHeladio pond has a left bka. left groin site is notender, scant blood, size of a eber, on dressing and was there upon assumpatiion of care. right leg revasced. scabs scattered throughout. see shift assessment for further detials. patient reports no pain, chest pain/pressure or shortness of breath. occupational therapy in working with patient this morning. plan of care up to date.
[2023-06-06 11:22] VITALS: BP 153/55
[2023-06-06 16:18] VITALS: BP 141/58
--- NOTE | 2023-06-06 17:41 | NUR ---
transfer note.shift summary this rn called juanita, caregiver, to give update about moving to room 345 on medical floor. juanita did not answer phone. no acute changes this shift. patient became angry because myself and malcolm rn in room discussing what is in patients bag, and took patients glucose tabs and locked in draw, which was told to medical floor rn in report, and to lock them in the drawer. patient caregiver juanita updated on and talked to the patient to help calm him down. patient is calmer now. no acute changes. plan of care remains up to date.
--- NOTE | 2023-06-06 18:28 | NUR ---
PT ARRIVED TO THE MEDICAL FLOOR FROM THE PCU VIA BED. REPORT TAKEN FROM PANCHO SINGH RN. PT ORIENTED TO THE ROOM CALL SYSTEM. CALL LIGHT IN REACH, WILL CONTINUE TO MONIOTR AND ASSESS FOR CHANGES
[2023-06-06 19:38] VITALS: BP 118/52
--- NOTE | 2023-06-06 23:52 | NUR ---
ASSUMED CARE OF PT. A/O AT FIRST THEN HAS BECOME CONFUSED THIS EVENING WITH BOUTS OF PARANOIA. NO C/O PAIN AT THIS POINT BUT PT VERY STIFF WHEN TURNING. PT A LITTLE HOSTILE TO STEEL ROLLERLeni RANGEL AND KICKED HIM OUT OF ROOM. FSBS WAS 370 DOWN FROM 400. PT SAYS THATS TOO LOW SO MAYBE NEEDS SOME MORE EDU ON CORRECT LEVELS. PT GATHERIFGN INFORMATION FROM OWN MONITOR.
--- NOTE | 2023-06-07 05:10 | NUR ---
[facility] FIRE EDU DONE. PT DID WELL WAS PRETTY CONFUSED THROUGHOUT SHIFT BUT EASILY REORIENTED. MERY RANGEL WAS KICKED OUT OF ROOM BECAUSE PT BECAME ANGRY AND PARANOID. PT HAD NO PAIN AND WAS ENC TO REPOSITION THROUGHOUT THE NIGHT. HOWELL DRAINING AND WILL BE DISCHARGED WITH CATH. VSS NO S/S OF DISTRESS.
[2023-06-07 05:44] VITALS: BP 152/56
[2023-06-07 07:09] VITALS: BP 164/64
[2023-06-07 15:55] VITALS: BP 149/54
--- NOTE | 2023-06-07 16:17 | NUR ---
PT IS A/OX3, PLEASANT AND COOPERATIVE. PT IS UP TO THE CHAIR WITH MAX ASSIST DUE TO RLE CELLULITIS/PAIN AND LEFT BKA. PT WAS ASSISTED UP PER HIS REQUEST TO HIS ELECTRIC WHEELCHAIR THIS AM AND STAYED IN THE CHAIR UNTIL AFTER LUNCH. THE PT HAS BEEN POLITE AND COOPERATIVE SO FAR THIS SHIFT. THE PT WAS MEDICATED FOR WILL PAIN THIS AM. THE PTS SIGNIFICANT OTHER WAS IN TO SEE HIM THIS AFTERNOON. CALL LIGHT IN REACH. WILL CONTINUE TO MONITOR AND ASSESS FOR CHANGES.
[2023-06-07 19:48] VITALS: BP 141/52
--- NOTE | 2023-06-07 20:20 | NUR ---
PT STATUS PT IS CONFUSED. PT IS REFUSING CHEM BG. HE BELIEVES HE IS AT HOME. WE WILL TRY AGAIN
[2023-06-08] VITALS (7 sets, daily range): BP systolic 125–181; BP diastolic 47–59
--- NOTE | 2023-06-08 04:14 | NUR ---
SHIFT SUMMARY ADMITTED FOR [facility]. DNR CODE. PLAN IS FOR REHAB, THEN PLACEMENT. RIGHT LEG DRESSINGS IN PLACE FROM DR. PARRA CONSULT PROCEDURE. WOUND CARE ORDERS IN PLACE. HOWELL IN PLACE. ADA DIET. ON RA. HE USES A WHEELCHAIR AT [facility]. LEFT LEG BKA. HE IS ON ELIQUIS. HE IS CONFUSED/AMS. RIGHT FOOT HAS CHRONIC ULCERS ON FOOT. HE WILL DC WITH HOWELL IN PLACE AND SEE UROLOGY OUTPT. FIRE SAFETY AND IGNITION RISK HAS BEEN ASSESSED AND DISCUSSED WITH THIS PT.
[2023-06-08 05:37] LABS: Hematocrit 30.8 % (37.0-53.0); Mean Corpuscular HGB 30.8 pg (26.0-34.0); Mean Corpuscular HGB Conc 35.7 g/dL (31.5-36.5); Mean Corpuscular Volume 86 fL (80-100); Mean Platelet Volume 9.9 fL (9.1-12.4); Platelet Count 341 K/mm3 (150-400); RDW Coefficient Variation 13.1 % (11.7-14.2); RDW Standard Deviation 41.2 fL (35.1-46.3); Red Blood Cell Count 3.57 M/mm3 (4.30-5.90); White Blood Cell Count 11.44 K/mm3 (4.00-11.30)
[2023-06-08 07:08] LABS: Albumin, Blood 1.8 g/dL (3.4-5.0); Albumin/Globulin Ratio 0.4 (0.8-1.8); Bilirubin, Total 0.4 mg/dL (0.1-1.0); Bun/Creatinine Ratio 34.8 (12.0-20.0); Creatinine, Blood 0.98 mg/dL (0.60-1.20); Globulin, Blood 4.6 g/dL (2.2-4.0); Potassium, Blood 4.4 mmol/L (3.5-5.5); Total Protein, Blood 6.4 g/dL (6.4-8.2)
--- NOTE | 2023-06-08 09:00 | NUR ---
pt laying in bed awake watching tv, coopertive with care, a/ox2, lungs are clear dim in bases, resp even and unlabored, no cough noted, hrr, pacer site to lcw, no edema noted on right foot, left bka, piv to left hand s.l. site is clear and patent, btx4, abd flat soft nontender, hernandez cath in place for acute retention, draining yellow urine, skin has wounds to right foot/heel, maew is max assist to chair per report, kate call light in reach.
--- NOTE | 2023-06-08 18:13 | NUR ---
pt frequently calls and doesn't remember calling, is not completely cooperative with care, as he insists on pushing against the bed rail while changing his brief, has been confused and insist he is in his home, when reoriented that he is in hosp he states you might be but im not, no further changes this shift. call light in reach.
--- NOTE | 2023-06-09 03:40 | NUR ---
PATIENT VERY ANXIOUS IN EVENING, CALLING OUT EVERY 4-5 MINUTES FOR THE SAME ITEMS AND REPEATING QUESTIONS ABOUT THE WHEREABOUTS OF HIS SIGNIFICANT OTHER WELL HIS LITTLE DOG. NO COMPLAINTS OF PAIN OR DISCOMFORT AT ALL. HAD TO BE REASSURED THAT HE WAS IN FACT VOIDING INTO HIS HOWELL CATH. URINE IS CLEAR AND YELLOW. AFTER HS, ISIAH SLEPT WELL FOR THE DURATION OF THE SHIFT. NO SOURCES OF IGNITION FOUND . FIRE SAFETY DISCUSSED WITH PATIENT. QUESTIONS ANSWERED.
[2023-06-09 04:50] VITALS: BP 143/59
[2023-06-09 05:01] LABS: Hematocrit 30.3 % (37.0-53.0); Hemoglobin 10.5 g/dL (13.5-17.5); Mean Corpuscular HGB 30.3 pg (26.0-34.0); Mean Corpuscular HGB Conc 34.7 g/dL (31.5-36.5); Mean Corpuscular Volume 87 fL (80-100); Mean Platelet Volume 10.1 fL (9.1-12.4); Platelet Count 372 K/mm3 (150-400); RDW Coefficient Variation 13.2 % (11.7-14.2); RDW Standard Deviation 41.6 fL (35.1-46.3); Red Blood Cell Count 3.47 M/mm3 (4.30-5.90); White Blood Cell Count 10.91 K/mm3 (4.00-11.30)
[2023-06-09 05:29] LABS: Albumin, Blood 1.7 g/dL (3.4-5.0); Albumin/Globulin Ratio 0.4 (0.8-1.8); Bilirubin, Total 0.3 mg/dL (0.1-1.0); Bun/Creatinine Ratio 38.9 (12.0-20.0); Calcium, Blood 8.1 mg/dL (8.5-10.1); Creatinine, Blood 1.08 mg/dL (0.60-1.20); Globulin, Blood 4.4 g/dL (2.2-4.0); Potassium, Blood 4.6 mmol/L (3.5-5.5); Total Protein, Blood 6.1 g/dL (6.4-8.2)
[2023-06-09 07:30] VITALS: BP 150/56
[2023-06-09 15:25] VITALS: BP 141/62
--- NOTE | 2023-06-09 18:38 | NUR ---
DAY SHIFT SUMMARY: A&Ox3-4. HAS BEEN PLEASANT AND COOPERATIVE WITH CARE SINCE ASSUMPTION OF CARE AT 1500. LARGE BM, ATE MOST OF HIS DINNER. GLUCOSE @ DINNERTIME 225 RECEIVING 4u INSULIN. MEPILEX PLACED TO WOUND RIGHT POSTERIOR THIGH. FIRE SAFETY INTERVENTION DONE. REPORT TO ONCOMING RN.
[2023-06-09 19:36] VITALS: BP 140/54
[2023-06-10 07:18] VITALS: BP 164/56
[2023-06-10 16:07] VITALS: BP 160/57
--- NOTE | 2023-06-10 16:44 | NUR ---
SHIFT SUMMARY- PT IS ALERT, AND COOPERATIVE. HE HAS INTERMITENT CONFUSION. HE WAS UP TO THE CHAIR THIS AFTERNOON WITH PT. HIS BED IS IN THE LOW POSITON AND CALL LIGHT IS WITHIN REACH.
[2023-06-10 19:45] VITALS: BP 151/73
[2023-06-11 05:23] LABS: BASOPHILS ABSOLUTE AUTO 0.09 K/mm3 (0.00-0.23); BASOPHILS PERCENT AUTO 1 % (0-2); EOSINOPHILS ABSOLUTE AUTO 0.75 K/mm3 (0.00-0.68); EOSINOPHILS PERCENT AUTO 7 % (0-6); Hematocrit 33.1 % (37.0-53.0); Hemoglobin 11.6 g/dL (13.5-17.5); IMMATURE GRAN ABSOLUTE AUTO 0.21 K/mm3 (0.00-0.10); IMMATURE GRAN PERCENT AUTO 2 % (0-1); LYMPHOCYTES ABSOLUTE AUTO 1.37 K/mm3 (0.84-5.20); LYMPHOCYTES PERCENT AUTO 13 % (21-46); MONOCYTES ABSOLUTE AUTO 1.17 K/mm3 (0.16-1.47); MONOCYTES PERCENT AUTO 11 % (4-13); Mean Corpuscular HGB 30.5 pg (26.0-34.0); Mean Corpuscular Volume 87 fL (80-100); Mean Platelet Volume 9.8 fL (9.1-12.4); NEUTROPHILS ABSOLUTE AUTO 7.11 K/mm3 (1.96-9.15); NEUTROPHILS PERCENT AUTO 67 % (41-73); Platelet Count 450 K/mm3 (150-400); RDW Coefficient Variation 13.4 % (11.7-14.2); RDW Standard Deviation 42.5 fL (35.1-46.3)
[2023-06-11 05:52] LABS: Bun/Creatinine Ratio 36.3 (12.0-20.0); Calcium, Blood 8.3 mg/dL (8.5-10.1); Creatinine, Blood 0.88 mg/dL (0.60-1.20); Potassium, Blood 4.5 mmol/L (3.5-5.5)
--- NOTE | 2023-06-11 06:02 | NUR ---
END OF SHIFT SUMMARY PT A&O x3-4 WITH STML. INCREASED CONFUSION, PT BEGAN TO MAKE STATEMENTS SUCH HE WAS GOING TO CALL THE POLICE. PT FINALLY APPEARED TO BE ASLEEP, RESTING COMFORTABLY. HOWELL CATH PATENT. NEW ORDER FOR PRN IV HALDOL AVAILABLE FOR PT WHEN AGGITATION OCCURS. PT COMPLIANT WITH MEDICATIONS LAST NIGHT. CALL LIGHT WITHIN REACH, WCTM.
[2023-06-11 07:41] VITALS: BP 182/80
[2023-06-11] MEDS ORDERED: LISI20 PO (10:43)
[2023-06-11 15:37] VITALS: BP 152/51
[2023-06-11] MEDS ORDERED: KETO15TC TOP (16:57)
--- NOTE | 2023-06-11 18:09 | NUR ---
SHIFT SUMMARY PT SLEEPING LATE TODAY. HAS BEEN QUIET MOST OF THE DAY BUT PARANOID ABOUT MEDS AND INSISTING ON CALLING HIS CAREGIVER BEFORE TAKING ANY MEDICATIONS. CAREGIVER CONCERNED ABOUT HALLUCINATIONS LAST NIGHT AND REPORTS LAST NIGHTS WAS THE WORST YET. UP TO CHAIR FOR SUPPER. CAN BE SHORT TEMPERED AT TIMES BUT AGREEABLE MOST OF THE TIME. DRESSINGS TO WOUNDS INTACT.
[2023-06-11 19:42] VITALS: BP 134/57
--- NOTE | 2023-06-12 03:56 | NUR ---
END OF SHIFT SUMMARY UNEVENTFUL NIGHT; PT SLEPT THE MAJORITY OF THE NIGHT. PEPCID WAS DISCONTINUED, PT BELIEVES THAT HIS HALLUCINATIONS WERE BEING CAUSED BY PEPCID. PT UP IN W/C AT BEGINNING OF SHIFT. PT TRANSFERED WITH ASSISTANCE FROM 2 CAREGIVERS. HOWELL CATH PATENT, DRAINING WELL. PT DENIED PAIN/DISCOMFORT. PT COMPLIANT WITH ALL MEDICATIONS. PT EDUCATION REGARDING FIRE SAFETY AND INGITION RISK HAS BEEN DISCUSSED AND ASSESSED WITH THIS PT. NO LIGHTERS IN PT'S POSSESSION.
[2023-06-12 04:40] VITALS: BP 139/60
[2023-06-12 05:15] LABS: BASOPHILS ABSOLUTE AUTO 0.08 K/mm3 (0.00-0.23); BASOPHILS PERCENT AUTO 1 % (0-2); EOSINOPHILS ABSOLUTE AUTO 0.68 K/mm3 (0.00-0.68); EOSINOPHILS PERCENT AUTO 6 % (0-6); Hematocrit 31.3 % (37.0-53.0); Hemoglobin 10.7 g/dL (13.5-17.5); IMMATURE GRAN ABSOLUTE AUTO 0.22 K/mm3 (0.00-0.10); IMMATURE GRAN PERCENT AUTO 2 % (0-1); LYMPHOCYTES ABSOLUTE AUTO 1.43 K/mm3 (0.84-5.20); LYMPHOCYTES PERCENT AUTO 13 % (21-46); MONOCYTES ABSOLUTE AUTO 1.21 K/mm3 (0.16-1.47); MONOCYTES PERCENT AUTO 11 % (4-13); Mean Corpuscular HGB 30.2 pg (26.0-34.0); Mean Corpuscular HGB Conc 34.2 g/dL (31.5-36.5); Mean Corpuscular Volume 88 fL (80-100); NEUTROPHILS ABSOLUTE AUTO 7.05 K/mm3 (1.96-9.15); NEUTROPHILS PERCENT AUTO 66 % (41-73); Platelet Count 482 K/mm3 (150-400); RDW Coefficient Variation 13.3 % (11.7-14.2); RDW Standard Deviation 43.4 fL (35.1-46.3); Red Blood Cell Count 3.54 M/mm3 (4.30-5.90); White Blood Cell Count 10.67 K/mm3 (4.00-11.30)
[2023-06-12 05:35] LABS: Albumin, Blood 1.9 g/dL (3.4-5.0); Albumin/Globulin Ratio 0.4 (0.8-1.8); Bilirubin, Total 0.3 mg/dL (0.1-1.0); Bun/Creatinine Ratio 44.2 (12.0-20.0); Calcium, Blood 8.7 mg/dL (8.5-10.1); Creatinine, Blood 0.91 mg/dL (0.60-1.20); Globulin, Blood 4.6 g/dL (2.2-4.0); Potassium, Blood 4.6 mmol/L (3.5-5.5); Total Protein, Blood 6.5 g/dL (6.4-8.2)
[2023-06-12 07:33] VITALS: BP 143/58
[2023-06-12 14:41] VITALS: BP 142/55
--- NOTE | 2023-06-12 18:26 | NUR ---
SHIFT SUMMARY PT AWAKE AND ALERT MOST OF THE DAY. MORE IRRITABLE THIS AFTERNOON. STATES HE WAS TOLD HE DIDN'T GET TO EAT BECAUSE HE WAS BEING TO NOISY. HE CALLED HIS SON AND TOLD HIM WELL AND SON CALLED TO SPEAK WITH STAFF. REASSURED SON ON THE PHONE PT WAS NOT TOLD HE DIDN'T GET TO EAT AND BROUGHT MEAL TRAY IMMEDIATELY ONCE IT ARRIVED TO FLOOR. DRESSINGS INTACT TO WOUNDS.
[2023-06-13 04:07] VITALS: BP 139/62
--- NOTE | 2023-06-13 04:07 | NUR ---
SHIFT SUMMARY NO ACUTE EVENTS THIS SHIFT. PATIENT ALERT ABLE TO MAKE NEEDS KNOWN, WOUND DRESSING INTACT. MEDICATED WITH TYLENOL FOR PAIN THIS AM. REPOSITIONS WITH ASSISTANCE. PATIENT WAS WORRIED HIS WALLET WAS LOST, THIS RN WAS ABLE TO LOCATE SAID WALLET IN A RED LUNCH BAG, INSIDE PATIENT BELONGING BAG. PATIENT RELIEVED TO KNOW WALLET AND CONTENTS ARE IN HIS POSSESSION. WAS ABLE TO SLEEP SOME THIS SHIFT. BED ALARM FOR SAFETY, VSS. CALL LIGHT IN REACH.
[2023-06-13 05:53] LABS: BASOPHILS ABSOLUTE AUTO 0.07 K/mm3 (0.00-0.23); BASOPHILS PERCENT AUTO 1 % (0-2); EOSINOPHILS ABSOLUTE AUTO 0.72 K/mm3 (0.00-0.68); EOSINOPHILS PERCENT AUTO 6 % (0-6); Hematocrit 30.7 % (37.0-53.0); Hemoglobin 10.7 g/dL (13.5-17.5); IMMATURE GRAN ABSOLUTE AUTO 0.23 K/mm3 (0.00-0.10); IMMATURE GRAN PERCENT AUTO 2 % (0-1); LYMPHOCYTES ABSOLUTE AUTO 1.35 K/mm3 (0.84-5.20); LYMPHOCYTES PERCENT AUTO 12 % (21-46); MONOCYTES ABSOLUTE AUTO 1.36 K/mm3 (0.16-1.47); MONOCYTES PERCENT AUTO 12 % (4-13); Mean Corpuscular HGB 30.5 pg (26.0-34.0); Mean Corpuscular HGB Conc 34.9 g/dL (31.5-36.5); Mean Corpuscular Volume 88 fL (80-100); Mean Platelet Volume 9.8 fL (9.1-12.4); NEUTROPHILS ABSOLUTE AUTO 7.74 K/mm3 (1.96-9.15); NEUTROPHILS PERCENT AUTO 67 % (41-73); Platelet Count 485 K/mm3 (150-400); RDW Coefficient Variation 13.4 % (11.7-14.2); RDW Standard Deviation 42.1 fL (35.1-46.3); Red Blood Cell Count 3.51 M/mm3 (4.30-5.90); White Blood Cell Count 11.47 K/mm3 (4.00-11.30)
[2023-06-13 06:24] LABS: Albumin, Blood 1.8 g/dL (3.4-5.0); Albumin/Globulin Ratio 0.4 (0.8-1.8); Bilirubin, Total 0.3 mg/dL (0.1-1.0); Bun/Creatinine Ratio 44.6 (12.0-20.0); Calcium, Blood 8.4 mg/dL (8.5-10.1); Creatinine, Blood 1.01 mg/dL (0.60-1.20); Globulin, Blood 4.2 g/dL (2.2-4.0); Potassium, Blood 4.4 mmol/L (3.5-5.5)
[2023-06-13 07:08] VITALS: BP 104/51
[2023-06-13 10:30] VITALS: BP 140/79
[2023-06-13 13:58] LABS: Source, Urine Foley catheter
[2023-06-13 14:08] LABS: Bilirubin, Urine Neg (Neg); Blood, Urine 3+ (Neg); Glucose Qualitative, Urine Neg (Neg); Ketones, Urine Neg (Neg); Leukocyte Esterase, Urine Neg (Neg); Nitrite, Urine Neg (Neg); Protein, Urine 2+ (Neg); Specific Gravity, Urine 1.015 (1.003-1.022); Urobilinogen, Urine NORM (Normal)
[2023-06-13 14:23] LABS: Appearance, Urine Hazy (Clear); Color, Urine Yellow (P-Yellow)
[2023-06-13 14:25] LABS: Bacteria Many /hpf; Squamous Epithelial Cells Rare /hpf (Few); White Blood Cells, Urine 0-2 /hpf (0-5)
[2023-06-13 15:42] VITALS: BP 136/45
--- NOTE | 2023-06-13 18:10 | NUR ---
SHIFT SUMMARY PT UP TO W/C TO DINNER. P.T. WORKED WITH PT THIS AFTERNOON. CRIS YADAV HERE TO EVALUATE PT TODAY. NO NEW INFORMATION AT THIS TIME. DRESSINGS INTACT TO RLE. R FOOT/ANKLE DRESSING CHANGED PER ORDERS YESTERDAY AT SHIFT CHANGE.
[2023-06-13 20:59] VITALS: BP 141/51
--- NOTE | 2023-06-13 23:43 | NUR ---
PT HAS BEEN DIFFICULT WITH CARE VILMA AND HAS BEEN RUDE TO THE STAFF WHEN SPEAKING TO THEM WHICH INCLUDES YELLING AT THEM AND DEMANDING THEM TO LEAVE, AND ALSO DIALED 911 ON HIS CELL PHONE TWICE. RN IS UNSURE IF PT ACTUALLY CALLED 911, BUT RN DID HEAR PT THREATENING TO CALL 911 AND THEN PT HAD HIS PHONE IN HIS HAND AND SAID, "SOMEONE HAS BROKEN INTO MY HOUSE!" PT IS DEMANDING STAFF SHUT HIS DOOR AND LEAVE HIS ROOM. RN CONTINUES TO EXPLAIN HE IS IN THE HOSPITAL AND TRYING TO REORIENT HIM. MEDICAL DELIVERY DRIVER NURSE REBECCA NOTIFIED AND UPDATED. WHEN REBECCA DID HER FIRE SAFETY ROUNDS PT STATED TO REBECCA, "YOU CAN LEAVE!" REBECCA REPLIED WITH EXPLAINING WHY FIRE SAFETY ROUNDS ARE REQUIRED AND ASKED PT TO NOT BE RUDE PLEASE.
--- NOTE | 2023-06-14 00:13 | NUR ---
RN HEARD BEEPING COMING FROM PT'S ROOM AROUND 0000 AND WENT INTO TO SEE WHAT IT WAS. PT'S GLUCOMETER WAS ALARMING INFORMING PT HIS BG WAS BELOW 100. BG=93 CURRENTLY. PT ASKED FOR APPLE JUICE AND PT ATE M&MS.
--- NOTE | 2023-06-14 00:32 | NUR ---
0020 PT REFUSING TO EAT ANYMORE. BG=74 ON PT'S GLUCOMETER.
--- NOTE | 2023-06-14 00:33 | NUR ---
0032 PT'S BG=84 ON PT'S GLUCOMETER.
--- NOTE | 2023-06-14 00:33 | NUR ---
0019 PT'S BG=70 ON HOSPITAL'S GLUCOMETER.
--- NOTE | 2023-06-14 00:34 | NUR ---
0034 PT IS ALERT AND DENIES ANY FEELINGS OF LOW GLUCOSE.
--- NOTE | 2023-06-14 00:43 | NUR ---
0043 PT'S GLUCOMETER IS READING 97 AND PT IS REFUSING TO LET RN CHECK BG W/ HOSPITAL GLUCOMETER. PT YELLED, "JUST PLEASE LEAVE ME ALONE!"
--- NOTE | 2023-06-14 02:11 | NUR ---
0200 PT'S [id number]. PT IS UPSET AND CALLING 911 ON HIS PHONE. RN TOOK PT'S PHONE AND PLACED IT ON THE COMPUTER DESK AND TOLD HIM HE CANNOT CALL 911 FROM THE HOSPITAL AND THAT IF HE WANTS OUT OF THE HOSPITAL HIS FAMILY MUST COME PICK HIM UP. RADIATION THERAPY TECHNOLOGIST RECEIVED A CALL FROM 911 ASKING [facility] TO PLEASE HAVE THE PT STOP CALLING THEM.
[2023-06-14 04:54] VITALS: BP 129/50
--- NOTE | 2023-06-14 04:55 | NUR ---
THIS RN GAVE PT HIS PHONE BACK 10 MINUTES AFTER IT WAS MOVED WHEN PT ASKED FOR IT. RN INSISTED HE MUST NOT CALL 911 AGAIN. PT AGREED.
--- NOTE | 2023-06-14 05:07 | NUR ---
SUMMARY- PT AAOX1 THIS SHIFT. PT HAS BEEN UNCOOPERATIVE W/CARE THIS SHIFT, BUT HAS ALSO BEEN PARTIALLY COOPERATIVE. PT'S BG WENT LOW TONIGHT DOWN TO 70. AFTER EATING IT INCREASED TO 103. PT CALLED 911 MULTIPLE TIMES THIS SHIFT INSISTING HE WAS BEING HELD AGAINST HIS WILL. RN ENSURED FIRE SAFETY EVERY HOUR WITH ROUNDS.
[2023-06-14 07:59] VITALS: BP 133/55
[2023-06-14 08:28] LABS: BASOPHILS ABSOLUTE AUTO 0.07 K/mm3 (0.00-0.23); BASOPHILS PERCENT AUTO 1 % (0-2); EOSINOPHILS ABSOLUTE AUTO 0.64 K/mm3 (0.00-0.68); EOSINOPHILS PERCENT AUTO 6 % (0-6); Hematocrit 31.1 % (37.0-53.0); Hemoglobin 11.1 g/dL (13.5-17.5); IMMATURE GRAN PERCENT AUTO 2 % (0-1); LYMPHOCYTES PERCENT AUTO 11 % (21-46); MONOCYTES ABSOLUTE AUTO 1.17 K/mm3 (0.16-1.47); MONOCYTES PERCENT AUTO 11 % (4-13); Mean Corpuscular HGB 31.4 pg (26.0-34.0); Mean Corpuscular HGB Conc 35.7 g/dL (31.5-36.5); Mean Corpuscular Volume 88 fL (80-100); Mean Platelet Volume 9.8 fL (9.1-12.4); NEUTROPHILS ABSOLUTE AUTO 7.23 K/mm3 (1.96-9.15); NEUTROPHILS PERCENT AUTO 69 % (41-73); Platelet Count 516 K/mm3 (150-400); RDW Coefficient Variation 13.4 % (11.7-14.2); RDW Standard Deviation 43.5 fL (35.1-46.3); Red Blood Cell Count 3.53 M/mm3 (4.30-5.90); White Blood Cell Count 10.51 K/mm3 (4.00-11.30)
[2023-06-14 08:48] LABS: Bun/Creatinine Ratio 44.5 (12.0-20.0); Calcium, Blood 8.4 mg/dL (8.5-10.1); Creatinine, Blood 0.99 mg/dL (0.60-1.20); Potassium, Blood 4.6 mmol/L (3.5-5.5)
[2023-06-14 15:34] VITALS: BP 132/58
--- NOTE | 2023-06-14 18:22 | NUR ---
SHIFT SUMMARY PATIENT PARANOID AT START OF SHIFT. PATIENT REQUESTING CAREGIVER TO BE CONTACTED TO REVIEW MEDS BEFORE WILLING TO TAKE MORNING MEDS. PATIENT TOOK MEDS AFTER TALKING WITH CAREGIVER. WOUND CARE PROVIDED TO R LEG. PATIENT UP TO WHEELCHAIR X1. PATIENT CONTINUES TO HAVE PAIN IN R LEG ESPECIALLY DURING WOUND CARE. PATIENT NOT WANTING ANY PAIN MEDS DURING THIS SHIFT. PATIENT ALLOWED STAFF TO CHECK BLOOD SUGARS WITH HOSPITAL MACHINE. PATIENT HAD 2BMS DURING THIS SHIFT. VISITORS BROUGHT PATIENT IN NON DIABETIC SNACKS. PATIENT EDUCATED ON CURRENT DIET AN DIABETES. CAREGIVER STATES THAT HE EATS THESE SNACKS ALL DAY AT HOME. PATIENT CONSIDERING GOING TO A FACILITY BECAUSE HE FEELS HIS CARE NEEDS ARE GETTING TO BE TOO MUCH FOR HIS CAREGIVER.
--- NOTE | 2023-06-15 04:47 | NUR ---
SHIFT SUMMARY 78 YR M ADMITTED ON 05/31/23 FOR BLE WOUNDS/PERIPHERAL STENTING. DNR. NO ACUTE CHANGES THIS SHIFT. PT WAS IN A PLEASANT MOOD THIS SHIFT AND HE DID NOT QUESTION HIS MEDS HE HAD DONE ON DAY SHIFT. HE ASKED FOR HELP W/ POSITONING AND THEN SLEPT FOR MOST OF THE REST OF THE SHIFT. HE WAS VERY PLEASANT AND COOPERATIVE W/ CARE. RLL WOUND DRESSING IS C/D/I.
[2023-06-15 05:09] LABS: BASOPHILS ABSOLUTE AUTO 0.07 K/mm3 (0.00-0.23); BASOPHILS PERCENT AUTO 1 % (0-2); EOSINOPHILS ABSOLUTE AUTO 0.68 K/mm3 (0.00-0.68); EOSINOPHILS PERCENT AUTO 7 % (0-6); Hematocrit 31.4 % (37.0-53.0); Hemoglobin 10.8 g/dL (13.5-17.5); IMMATURE GRAN ABSOLUTE AUTO 0.21 K/mm3 (0.00-0.10); IMMATURE GRAN PERCENT AUTO 2 % (0-1); LYMPHOCYTES ABSOLUTE AUTO 1.45 K/mm3 (0.84-5.20); LYMPHOCYTES PERCENT AUTO 14 % (21-46); MONOCYTES ABSOLUTE AUTO 1.27 K/mm3 (0.16-1.47); MONOCYTES PERCENT AUTO 13 % (4-13); Mean Corpuscular HGB 30.3 pg (26.0-34.0); Mean Corpuscular HGB Conc 34.4 g/dL (31.5-36.5); Mean Corpuscular Volume 88 fL (80-100); Mean Platelet Volume 9.8 fL (9.1-12.4); NEUTROPHILS ABSOLUTE AUTO 6.37 K/mm3 (1.96-9.15); NEUTROPHILS PERCENT AUTO 63 % (41-73); Platelet Count 534 K/mm3 (150-400); RDW Coefficient Variation 13.5 % (11.7-14.2); RDW Standard Deviation 43.4 fL (35.1-46.3); Red Blood Cell Count 3.56 M/mm3 (4.30-5.90); White Blood Cell Count 10.05 K/mm3 (4.00-11.30)
[2023-06-15 05:40] LABS: Albumin, Blood 1.9 g/dL (3.4-5.0); Albumin/Globulin Ratio 0.4 (0.8-1.8); Bilirubin, Total 0.3 mg/dL (0.1-1.0); Calcium, Blood 8.7 mg/dL (8.5-10.1); Globulin, Blood 4.3 g/dL (2.2-4.0); Potassium, Blood 4.9 mmol/L (3.5-5.5); Total Protein, Blood 6.2 g/dL (6.4-8.2)
[2023-06-15 07:50] VITALS: BP 144/61
[2023-06-15 16:26] VITALS: BP 135/64
[2023-06-15 19:44] VITALS: BP 132/59
--- NOTE | 2023-06-16 03:27 | NUR ---
SHIFT SUMMARY NO ACUTE CHANGES THIS SHIFT. PT IS PLEASANT AND COOPERATIVE WITH CARE. PT WAS CONCERNED THAT HE HAS NOT BEEN SLEEPING WELL BUT HAS SLEPT FOR MOST OF THIS SHIFT. WOUND DRESSINGS ARE C/D/I. HE C/O PAIN IN HIS RIGHT FOOT AND WAS GIVEN TYLENOL PER EMAR W/ GOOD RESULTS.
[2023-06-16 05:01] VITALS: BP 128/61
[2023-06-16 05:22] LABS: BASOPHILS ABSOLUTE AUTO 0.08 K/mm3 (0.00-0.23); BASOPHILS PERCENT AUTO 1 % (0-2); EOSINOPHILS PERCENT AUTO 7 % (0-6); Hematocrit 33.4 % (37.0-53.0); Hemoglobin 11.4 g/dL (13.5-17.5); IMMATURE GRAN ABSOLUTE AUTO 0.18 K/mm3 (0.00-0.10); IMMATURE GRAN PERCENT AUTO 2 % (0-1); LYMPHOCYTES PERCENT AUTO 16 % (21-46); MONOCYTES ABSOLUTE AUTO 1.18 K/mm3 (0.16-1.47); MONOCYTES PERCENT AUTO 12 % (4-13); Mean Corpuscular HGB 30.6 pg (26.0-34.0); Mean Corpuscular HGB Conc 34.1 g/dL (31.5-36.5); Mean Corpuscular Volume 90 fL (80-100); Mean Platelet Volume 9.7 fL (9.1-12.4); NEUTROPHILS ABSOLUTE AUTO 5.98 K/mm3 (1.96-9.15); NEUTROPHILS PERCENT AUTO 62 % (41-73); Platelet Count 553 K/mm3 (150-400); RDW Coefficient Variation 13.5 % (11.7-14.2); Red Blood Cell Count 3.73 M/mm3 (4.30-5.90); White Blood Cell Count 9.62 K/mm3 (4.00-11.30)
[2023-06-16 06:07] LABS: Albumin, Blood 1.9 g/dL (3.4-5.0); Albumin/Globulin Ratio 0.4 (0.8-1.8); Bilirubin, Total 0.2 mg/dL (0.1-1.0); Calcium, Blood 8.6 mg/dL (8.5-10.1); Globulin, Blood 4.3 g/dL (2.2-4.0); Potassium, Blood 4.8 mmol/L (3.5-5.5); Total Protein, Blood 6.2 g/dL (6.4-8.2)
[2023-06-16 07:38] VITALS: BP 130/56
[2023-06-16 15:30] VITALS: BP 150/62
--- NOTE | 2023-06-16 17:38 | NUR ---
SHIFT SUMMARY PATIENT CONFUSED AT TIMES BUT EASILY REORIENTED. PATIENT CONTINUES TO HAVE PAIN/TENDERNESS OF R LOWER EXTREMETY. SKIN CARE PROVIDED AND WOUND CARE TO R LOWER LEG. PATIENT CONTINUES TO HAVE THICK AREAS OF SKIN SLOUGHING ON LEG AND FOOT. BARRIER CREAM APPLIED TO BUTTOCKS FOR PROTECTION. AREAS OF DISCOLORATION BLANCHABLE BOWEL MOVEMENTS DECREASED SINCE PATIENT NO LONGER TAKING ANTIBIOTICS. DRESSING OVER L GROIN REMOVED AND WOUND CARE PROVIDED. EXCORIATED AREA FOUND UNDER DRESSING WITH SLOUGH. WOUND CLEANSED AND DRESSING REAPPLIED. R LEG ELEVATED AND FOOT FLOATED THROUGHOUT THE SHIFT.
[2023-06-16 19:49] VITALS: BP 134/55
--- NOTE | 2023-06-16 20:48 | NUR ---
PT REFUSING BLOOD SUGAR CHECK AND MEDICATIONS, WILL CONTINUE TO EDUCATE PT.
--- NOTE | 2023-06-17 05:50 | NUR ---
SHIFT SUMMARY A/O TO SELF AND FAMILY. PT PARANOID AND REFUSING MEDICATIONS AND BLOOD SUGAR CHECKS. L. BKA AND WOUNDS TO RLE, DRESSING C/D/I. HOWELL PATENT AND DRAINING TO GRAVITY. VSS, NO ACUTE CHANGES AT THIS TIME. BED IN LOWEST POSITION WITH CALL LIGHT IN REACH. WILL CONTINUE TO MONITOR AND REPORT TO ONCOMING RN.
[2023-06-17 06:26] VITALS: BP 173/63
[2023-06-17 06:30] VITALS: BP 163/60
[2023-06-17 07:58] VITALS: BP 163/59
[2023-06-17 15:31] LABS: SARS-Cov-2 (COVID-19) PCR, MMC NEGATIVE (NEGATIVE)
[2023-06-17 16:42] VITALS: BP 147/67
--- NOTE | 2023-06-17 18:13 | NUR ---
SHIFT NOTE PT AWAKE AND ALERT. HE CALLS HIS CAREGIVER FREQUENTLY. VSS. ROLLS SELF. BED MONACO X2. HOWELL PATENT DRAINING CLEAR, YELLOW URINE. GOOD APPETITE. PT WAS INTERVIEWED BY [facility] STAFF. HE IS AGREEABLE TO GO LIVE THERE. BLOOD SUGARS ELEVATED. COVERED CBG PER SLIDING SCALE COVERAGE. CONTINUE POC.
[2023-06-17 19:52] VITALS: BP 113/55
--- NOTE | 2023-06-18 04:04 | NUR ---
SHIFT SUMMARY ADMITTED FOR RITIKA. DNR CODE. PLAN IS FOR PLACEMENT. CHRONIC HOWELL IN PLACE. ACHS CBG'S, MEDIUM SS. ADA DIET. HE IS ON ELIQUIS. IR INTERVENTION WITH CONSULT AIDA ON 06/05. IN ELECTRIC WHEELCHAIR AT BASELINE. HX OF LEFT BKA. CHRONIC ULCERS ON RIGHT FOOT AND COCCYX. HE DOES REFUSE CBG'S AND MEDICATIONS AT TIMES. HX OF DEMENTIA.
[2023-06-18 07:35] VITALS: BP 153/62
--- NOTE | 2023-06-18 11:31 | NUR ---
PATIENT BLOOD SUGAR 92 THIS AM, PER DR VANCE, RECHECK BP IN AN HOUR AND CALL BACK. FOLLOW UP BS WAS 192, DR VANCE STATES GIVE 9 UNITS GLARGINE THIS AM.
[2023-06-18] MEDS ORDERED: JUVEN PACKET1 EAC3 PO (12:12)
[2023-06-18] MEDS ORDERED: Acetaminophen325 M1 PO (12:12)
[2023-06-18] MEDS ORDERED: ASPI81CH PO (12:13)
[2023-06-18] MEDS ORDERED: HUMULIN R100 UNIT/2 SC (12:13)
[2023-06-18] MEDS ORDERED: Flomax0.4 MG PO (12:14)
[2023-06-18] MEDS ORDERED: Seroquel Xr50 MG PO (12:14)
[2023-06-18] MEDS ORDERED: VISBIOME 112.51 EACH PO (12:15)
--- NOTE | 2023-06-18 12:16 | NUR ---
REPORT GIVEN TO TOMAS ANNE, COVERING REST OF SHIFT
--- NOTE | 2023-06-18 12:25 | NUR ---
report called to meryl wyman
== END 2023-06-18 12:15 | disposition home health service (06) | DRG 252 ==
LOC: ER 13:46 → MEDS 13:47 → PCU 06-05 09:15 → MEDS 06-06 18:16
PROVIDERS: Hospitalist; Internal Medicine; Nurse Practitioner Acute Care; Physician Assistant; ADMIT Internal Medicine
PROC: 047M3ZZ Dilation of Right Popliteal Artery, Percutaneous Approach (ICD-10-PCS; principal; 2023-06-05)
PROC: 047P3ZZ Dilation of Right Anterior Tibial Artery, Percutaneous Approach (ICD-10-PCS; 2023-06-05)
PROC: 047R3ZZ Dilation of Right Posterior Tibial Artery, Percutaneous Approach (ICD-10-PCS; 2023-06-05)
PROC: B41G1ZZ Fluoroscopy of Left Lower Extremity Arteries using Low Osmolar Contrast (ICD-10-PCS; 2023-06-05)
PROC: 0T9B70Z Drainage of Bladder with Drainage Device, Via Natural or Artificial Opening (ICD-10-PCS; 2023-06-13)
DX: E10.51 Type 1 diabetes mellitus with diabetic peripheral angiopathy without gangrene (principal); L89.153 Pressure ulcer of sacral region, stage 3; N17.0 Acute kidney failure with tubular necrosis; F05 Delirium due to known physiological condition; I50.32 Chronic diastolic (congestive) heart failure; E88.09 Other disorders of plasma-protein metabolism, not elsewhere classified; Z66 Do not resuscitate; I11.0 Hypertensive heart disease with heart failure; E10.621 Type 1 diabetes mellitus with foot ulcer; L97.519 Non-pressure chronic ulcer of other part of right foot with unspecified severity; I48.0 Paroxysmal atrial fibrillation; M19.90 Unspecified osteoarthritis, unspecified site; E86.0 Dehydration; I70.235 Atherosclerosis of native arteries of right leg with ulceration of other part of foot; L89.619 Pressure ulcer of right heel, unspecified stage; Z20.822 Contact with and (suspected) exposure to COVID-19; R33.9 Retention of urine, unspecified; R31.9 Hematuria, unspecified; D64.9 Anemia, unspecified; N35.919 Unspecified urethral stricture, male, unspecified site; F03.90 Unspecified dementia, unspecified severity, without behavioral disturbance, psychotic disturbance, mood disturbance, and anxiety; Z95.0 Presence of cardiac pacemaker; Z89.512 Acquired absence of left leg below knee; Z99.3 Dependence on wheelchair; Z79.2 Long term (current) use of antibiotics; Z79.4 Long term (current) use of insulin; Z79.811 Long term (current) use of aromatase inhibitors; Z98.890 Other specified postprocedural states; Z86.73 Personal history of transient ischemic attack (TIA), and cerebral infarction without residual deficits; Z79.899 Other long term (current) drug therapy; Z88.2 Allergy status to sulfonamides; Z88.5 Allergy status to narcotic agent; Z87.891 Personal history of nicotine dependence; Z87.440 Personal history of urinary (tract) infections
CPT/HCPCS: 36415; 73630; 76770; 76937; 80048; 80053; 80069; 81001; 82607; 82728; 82746; 82947; 83540; 83550; 83735; 85025; 85027; 87040; 94640; 94664; 94760; 96365; 96366; 97110; 97163; 97166; 97530; 97535; 99152; 99153; 99285-25; A9270; C1760; C1769; C1887; C1894; G0378; J1644; J1815; J1940; J2250; J2543; J3010; J7030; J7050; Q9967; U0002

== ENCOUNTER 2023-06-19 16:09 | Emergency (ER) | payer MEDICARE, OTHER ==
[~2023-06-19] VITALS: Ht 165.1 cm; Wt 90.7 kg
[~2023-06-19 16:09] MED LIST changes: +ASPI81CH PO; +Acetaminophen325 M1 PO; +Flomax0.4 MG PO; +HUMULIN R100 UNIT/2 SC; +JUVEN PACKET1 EAC3 PO; +KETO15TC TOP; +LISI20 PO; +Seroquel Xr50 MG PO; +VISBIOME 112.51 EACH PO
[2023-06-19 17:10] LABS: Calcium, Ionized (POC) 1.14 mmol/L (1.10-1.46); Chloride (POC) 99 mmol/L (98-108); Creatinine (POC) 1.3 mg/dL (0.8-1.3); Glucose (ISTAT POC) 446 mg/dL (70-99); Hemoglobin (POC) 11.9 g/dL (13.5-17.5); Potassium (POC) 4.6 mmol/L (3.5-5.5); Sodium (POC) 129 mmol/L (135-148); Total CO2 (POC) 21 mmol/L (21-32)
[2023-06-19 18:39] LABS: Source, Urine Foley catheter
[2023-06-19 18:46] LABS: Appearance, Urine Clear (Clear); Bilirubin, Urine Neg (Neg); Blood, Urine 4+ (Neg); Glucose Qualitative, Urine 4+ (Neg); Ketones, Urine Neg (Neg); Leukocyte Esterase, Urine Neg (Neg); Nitrite, Urine Neg (Neg); Protein, Urine 1+ (Neg); Specific Gravity, Urine 1.015 (1.003-1.022); Urobilinogen, Urine NORM (Normal)
[2023-06-19 19:00] LABS: Color, Urine Pale Yellow (P-Yellow)
[2023-06-19 19:02] LABS: Bacteria Few /hpf; Hyaline Casts 0-2 /lpf (0-2); Squamous Epithelial Cells Not Seen /hpf (Few); White Blood Cells, Urine 0-2 /hpf (0-5)
[2023-06-19 20:00] VITALS: BP 134/58
== END 2023-06-19 22:32 | disposition home or self-care (01) ==
LOC: ER 16:09
PROVIDERS: Emergency Medicine
DX: E11.65 Type 2 diabetes mellitus with hyperglycemia (principal); E11.40 Type 2 diabetes mellitus with diabetic neuropathy, unspecified; M19.90 Unspecified osteoarthritis, unspecified site; I50.9 Heart failure, unspecified
CPT/HCPCS: 80047; 81001; 82947; 85014; 96360; 99283-25; J1815; J7030

== ENCOUNTER → 2023-07-15 | Outpatient (CLI) | payer MEDICARE, OTHER ==
[2023-07-15 18:57] LABS: Appearance, Urine Hazy (Clear); Bilirubin, Urine Neg (Neg); Blood, Urine 5+ (Neg); Color, Urine Yellow (P-Yellow); Glucose Qualitative, Urine Neg (Neg); Ketones, Urine 1+ (Neg); Leukocyte Esterase, Urine 3+ (Neg); Nitrite, Urine Neg (Neg); Protein, Urine 3+ (Neg); Specific Gravity, Urine 1.015 (1.003-1.022); Urobilinogen, Urine NORM (Normal)
[2023-07-15 19:11] LABS: Bacteria Many /hpf; Squamous Epithelial Cells Few /hpf (Few); White Blood Cells, Urine 25-50 /hpf (0-5)
[2023-07-15 19:12] LABS: Hyaline Casts 0-2 /lpf (0-2); Renal Epithelial Rare /hpf (0-Rare)
== END | disposition home or self-care (01) ==
LOC: LAB SHORT 16:00 → LAB 16:00
PROVIDERS: Legal Medicine
DX: R82.90 Unspecified abnormal findings in urine (principal)
CPT/HCPCS: 81001; 87077; 87086; 87186

== ENCOUNTER 2023-08-05 14:36 | Emergency (ER) | payer MEDICARE, OTHER ==
[~2023-08-05] VITALS: Ht 170.2 cm; Wt 98.4 kg
[~2023-08-05 14:36] MED LIST changes: -ELIQUIS5 M3 PO; -INSULANI; -NOVOLIN 70100 UNIT/3 SC
[2023-08-05 15:33] LABS: Source, Urine Foley catheter
[2023-08-05 15:38] LABS: BASOPHILS ABSOLUTE AUTO 0.08 K/mm3 (0.00-0.23); BASOPHILS PERCENT AUTO 1 % (0-2); EOSINOPHILS ABSOLUTE AUTO 0.19 K/mm3 (0.00-0.68); EOSINOPHILS PERCENT AUTO 1 % (0-6); Hematocrit 33.8 % (37.0-53.0); Hemoglobin 11.4 g/dL (13.5-17.5); IMMATURE GRAN ABSOLUTE AUTO 0.14 K/mm3 (0.00-0.10); IMMATURE GRAN PERCENT AUTO 1 % (0-1); LYMPHOCYTES ABSOLUTE AUTO 1.22 K/mm3 (0.84-5.20); LYMPHOCYTES PERCENT AUTO 7 % (21-46); MONOCYTES ABSOLUTE AUTO 1.61 K/mm3 (0.16-1.47); MONOCYTES PERCENT AUTO 10 % (4-13); Mean Corpuscular HGB 29.5 pg (26.0-34.0); Mean Corpuscular HGB Conc 33.7 g/dL (31.5-36.5); Mean Corpuscular Volume 87 fL (80-100); Mean Platelet Volume 9.5 fL (9.1-12.4); NEUTROPHILS PERCENT AUTO 81 % (41-73); Platelet Count 613 K/mm3 (150-400); RDW Standard Deviation 41.7 fL (35.1-46.3); Red Blood Cell Count 3.87 M/mm3 (4.30-5.90); White Blood Cell Count 16.54 K/mm3 (4.00-11.30)
[2023-08-05 15:41] LABS: Appearance, Urine Cloudy (Clear); Bilirubin, Urine Neg (Neg); Blood, Urine 4+ (Neg); Color, Urine Yellow (P-Yellow); Glucose Qualitative, Urine Neg (Neg); Ketones, Urine Neg (Neg); Leukocyte Esterase, Urine 3+ (Neg); Nitrite, Urine Neg (Neg); Protein, Urine 3+ (Neg); Specific Gravity, Urine 1.015 (1.003-1.022); Urobilinogen, Urine NORM (Normal)
[2023-08-05 15:59] LABS: Albumin/Globulin Ratio 0.3 (0.8-1.8); Bilirubin, Total 0.7 mg/dL (0.1-1.0); Bun/Creatinine Ratio 18.4 (12.0-20.0); Calcium, Blood 8.9 mg/dL (8.5-10.1); Creatinine, Blood 1.03 mg/dL (0.60-1.20); Globulin, Blood 5.8 g/dL (2.2-4.0); Potassium, Blood 3.4 mmol/L (3.5-5.5); Total Protein, Blood 7.8 g/dL (6.4-8.2)
[2023-08-05 16:08] LABS: Bacteria Many /hpf; Squamous Epithelial Cells Few /hpf (Few); White Blood Cells, Urine TNTC /hpf (0-5)
[2023-08-05 16:09] LABS: Amorphous Light (0-Heavy); Hyaline Casts 0-2 /lpf (0-2)
[2023-08-05] MEDS ORDERED: CEPH500 PO (20:18)
[2023-08-05] MEDS ORDERED: ELIQUIS5 M3 PO (23:45)
[2023-08-05] MEDS ORDERED: INSULANI (23:46)
[2023-08-05] MEDS ORDERED: NOVOLIN 70100 UNIT/3 SC (23:48)
[2023-08-06 05:45] VITALS: BP 130/59
== END 2023-08-06 06:22 | disposition home or self-care (01) ==
LOC: ER 14:36
PROVIDERS: Emergency Medicine
DX: N39.0 Urinary tract infection, site not specified (principal); E11.40 Type 2 diabetes mellitus with diabetic neuropathy, unspecified; I50.9 Heart failure, unspecified; I42.9 Cardiomyopathy, unspecified; Z88.2 Allergy status to sulfonamides; Z88.5 Allergy status to narcotic agent; Z79.01 Long term (current) use of anticoagulants; Z79.4 Long term (current) use of insulin; Z79.82 Long term (current) use of aspirin; Z79.899 Other long term (current) drug therapy; Z87.891 Personal history of nicotine dependence
CPT/HCPCS: 71046; 80053; 81001; 83605; 84484; 85025; 87077; 87086; 87186; 93005; 93010; 96361; 96365; 99285-25; J0696; J7030

== ENCOUNTER → 2023-08-05 | Outpatient (CLI) | payer MEDICARE, OTHER ==
[~2023-08-05] MED LIST changes: +ELIQUIS5 M3 PO; +INSULANI; +NOVOLIN 70100 UNIT/3 SC
[2023-08-05 13:59] LABS: Source, Urine Foley catheter
[2023-08-05 15:51] LABS: Appearance, Urine Turbid (Clear); Bilirubin, Urine Neg (Neg); Blood, Urine 5+ (Neg); Color, Urine Yellow (P-Yellow); Glucose Qualitative, Urine Neg (Neg); Ketones, Urine Neg (Neg); Leukocyte Esterase, Urine 3+ (Neg); Nitrite, Urine Neg (Neg); Protein, Urine 3+ (Neg); Urobilinogen, Urine NORM (Normal)
[2023-08-05 16:19] LABS: Bacteria Many /hpf; Red Blood Cells, Urine TNTC /hpf (0-2); Triple Phosphate Crystals Many /hpf; White Blood Cells, Urine TNTC /hpf (0-5)
[2023-08-05 16:21] LABS: Amorphous Light (0-Heavy); Hyaline Casts 0-2 /lpf (0-2); Squamous Epithelial Cells Rare /hpf (Few)
== END | disposition home or self-care (01) ==
LOC: LAB SHORT 12:20 → LAB 12:20
PROVIDERS: Legal Medicine
DX: N39.0 Urinary tract infection, site not specified (principal)
CPT/HCPCS: 81001; 87077; 87086; 87186

== ENCOUNTER 2023-08-06 09:30 | Inpatient (IN) | payer MEDICARE, OTHER ==
[~2023-08-06] VITALS: Ht 170.2 cm; Wt 83.4 kg
[~2023-08-06 09:30] MED LIST changes: +ELIQUIS5 M3 PO; +INSULANI; +NOVOLIN 70100 UNIT/3 SC
[2023-08-06 10:39] LABS: BASOPHILS ABSOLUTE AUTO 0.07 K/mm3 (0.00-0.23); BASOPHILS PERCENT AUTO 0 % (0-2); EOSINOPHILS PERCENT AUTO 1 % (0-6); Hematocrit 32.8 % (37.0-53.0); IMMATURE GRAN ABSOLUTE AUTO 0.18 K/mm3 (0.00-0.10); IMMATURE GRAN PERCENT AUTO 1 % (0-1); LYMPHOCYTES ABSOLUTE AUTO 1.02 K/mm3 (0.84-5.20); LYMPHOCYTES PERCENT AUTO 5 % (21-46); MONOCYTES ABSOLUTE AUTO 1.55 K/mm3 (0.16-1.47); MONOCYTES PERCENT AUTO 8 % (4-13); Mean Corpuscular HGB 29.3 pg (26.0-34.0); Mean Corpuscular HGB Conc 33.5 g/dL (31.5-36.5); Mean Corpuscular Volume 87 fL (80-100); Mean Platelet Volume 9.6 fL (9.1-12.4); NEUTROPHILS PERCENT AUTO 85 % (41-73); Platelet Count 545 K/mm3 (150-400); RDW Standard Deviation 41.5 fL (35.1-46.3); Red Blood Cell Count 3.76 M/mm3 (4.30-5.90); White Blood Cell Count 19.22 K/mm3 (4.00-11.30)
[2023-08-06 10:56] LABS: Albumin, Blood 1.9 g/dL (3.4-5.0); Albumin/Globulin Ratio 0.4 (0.8-1.8); Bilirubin, Total 0.6 mg/dL (0.1-1.0); Bun/Creatinine Ratio 21.9 (12.0-20.0); Calcium, Blood 8.4 mg/dL (8.5-10.1); Creatinine, Blood 1.05 mg/dL (0.60-1.20); Globulin, Blood 5.4 g/dL (2.2-4.0); Potassium, Blood 3.9 mmol/L (3.5-5.5); Total Protein, Blood 7.3 g/dL (6.4-8.2)
[2023-08-06 15:02] VITALS: BP 120/51
[2023-08-06 19:18] VITALS: BP 123/52
--- NOTE | 2023-08-06 19:49 | NUR ---
ARRIVAL/SHIFT SUMMARY PT ARRIVED TO THE FLOOR VIA GURNEY AND TRANSFERRED TO HIS BED VIA SLIDER SHEET, APPEARED A/OX4 AT TIME OF ARRIVAL BUT BECAME EVIDENT HE HAD SOME CONFUSION WHILE PERFORMING HIS ADMISSION ASSESSMENT. HE HAS NOT BEEN IMPULSIVE BUT DOES NOT KNOW WHERE HE IS OR WHAT IS GOING ON. ADMISSION COMPLETED, CALL LIGHT IN REACH, BED ALARM ON.
--- NOTE | 2023-08-06 21:25 | NUR ---
DR WALDRON CALL CALL FROM DR. WALDRON TO INFORM OF NEW ORDERS FOR GLARGINE AT BEDTIME FOR CBG >180. PROVIDER TO ENTER ORDERS
[2023-08-06 21:26] LABS: Source, Urine Foley catheter
[2023-08-06 21:45] LABS: Appearance, Urine Turbid (Clear); Bilirubin, Urine Neg (Neg); Blood, Urine 5+ (Neg); Color, Urine Yellow (P-Yellow); Glucose Qualitative, Urine Neg (Neg); Ketones, Urine Neg (Neg); Leukocyte Esterase, Urine 3+ (Neg); Nitrite, Urine Neg (Neg); Protein, Urine 3+ (Neg); Specific Gravity, Urine 1.015 (1.003-1.022); Urobilinogen, Urine NORM (Normal)
[2023-08-06 22:01] LABS: Squamous Epithelial Cells Rare /hpf (Few); White Blood Cells, Urine TNTC /hpf (0-5)
[2023-08-06 22:02] LABS: Bacteria Many /hpf
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
--- NOTE | 2023-08-07 06:27 | NUR ---
SHIFT SUMMARY AWAITING SURGERY FOR R BKA R/T DIABETIC WOUND AND OSTEOMYELITIS, FOLLOWING CARDIOLOGY CONSULT TODAY. PT HX OF L BKA AND DEMENTIA, AND DEMANDING SOMEONE CALL THE POLICE TO GET HIM HOME. PT AGGITATED T/O SHIFT AND MEDICATED W/ HALDOL 2.5MG AND ZYPREXA 10MG THAT EVENTUALLY GAVE SOME RELIEF TO ALLOW FOR SLEEP. PT REFUSING PAIN MEDICATIONS T/O SHIFT. PACEMAKER TO LEFT CHEST, CHRONIC USE HOWELL IN PLACE DRAINING DARK THU URINE, ATTENDS IN PLACE FOR INCONT BOWEL,SM BOWEL TONIGHT. IV TO BL ARMS CURRENTLY RUNNING NS 75ML/HR R/T NPO @MN IN L AC. BED ALARM ACTIVE, CBG'S Q6 AT THIS TIME. SURGICAL CONSENTS TO BE APPROVED W/ SON, JUANA, R/T HX DEMENTIA.
--- NOTE | 2023-08-07 06:54 | NUR ---
IV TO R FA REMOVED BY PT, REFUSING TO ALLOW COBAN/GAUZE.
[2023-08-07 07:24] VITALS: BP 114/75
[2023-08-07 10:07] LABS: Hematocrit 28.5 % (37.0-53.0); Hemoglobin 9.5 g/dL (13.5-17.5); Mean Corpuscular HGB 29.2 pg (26.0-34.0); Mean Corpuscular HGB Conc 33.3 g/dL (31.5-36.5); Mean Corpuscular Volume 88 fL (80-100); Mean Platelet Volume 9.2 fL (9.1-12.4); Platelet Count 493 K/mm3 (150-400); RDW Standard Deviation 42.2 fL (35.1-46.3); Red Blood Cell Count 3.25 M/mm3 (4.30-5.90); White Blood Cell Count 12.68 K/mm3 (4.00-11.30)
[2023-08-07 11:00] LABS: Potassium, Blood 3.5 mmol/L (3.5-5.5)
[2023-08-07 11:01] LABS: Bun/Creatinine Ratio 22.3 (12.0-20.0); Calcium, Blood 8.5 mg/dL (8.5-10.1); Creatinine, Blood 0.94 mg/dL (0.60-1.20)
[2023-08-07 14:09] VITALS: BP 119/52
[2023-08-07 19:08] VITALS: BP 101/43
--- NOTE | 2023-08-07 21:04 | NUR ---
HOLD GLARGINE CBG 181 @HS, CLINICAL JUDGEMENT TO HOLD HS DOSE OF GLARGINE R/T TODAYS CRITICAL LOW BS. PT TO BE NPO @MN. WILL CONTINUE TO MONITOR CBG T/O NIGHT.
[2023-08-08] VITALS (20 sets, daily range): BP systolic 118–171; BP diastolic 42–77
[2023-08-08 01:17] LABS: Hematocrit 27.6 % (37.0-53.0); Hemoglobin 9.3 g/dL (13.5-17.5); Mean Corpuscular HGB 29.2 pg (26.0-34.0); Mean Corpuscular HGB Conc 33.7 g/dL (31.5-36.5); Mean Corpuscular Volume 87 fL (80-100); Mean Platelet Volume 9.6 fL (9.1-12.4); Platelet Count 479 K/mm3 (150-400); RDW Coefficient Variation 13.1 % (11.7-14.2); RDW Standard Deviation 41.5 fL (35.1-46.3); Red Blood Cell Count 3.18 M/mm3 (4.30-5.90); White Blood Cell Count 10.55 K/mm3 (4.00-11.30)
[2023-08-08 01:54] LABS: Vancomycin, Trough 22.9 ug/mL (5.0-10.0)
--- NOTE | 2023-08-08 02:24 | NUR ---
CB[place] SP[place] [facility] [place] [id number] @[id number], DR. VILLELA NOTIFIED OF GLARGINE HOLD AT HS AND PT NPO STATUS. NO NEW ORDERS AT THIS TIME.
--- NOTE | 2023-08-08 05:41 | NUR ---
SHIFT SUMMARY AWAITING SURGERY FOR R BKA R/T DIABETIC WOUND AND OSTEOMYELITIS. PT SLEPT T/O NIGHT AND PLEASANT COMPAIRABLE TO PREVIOUS NIGHT. VSS, CBG 297 THIS AM. PT NPO FOR SURGERY. PT OBSESSIVE ABOUT PHONE TO CALL FRIEND, PIPE OR SON JUANA. HEEL CONTINUES TO DRAIN AND STRONG ODOR IN ROOM. WOUND TO BACK OF LEG COVERED W/ NON ADHERANT AND GAUZE FOR COMFORT. PT CONTINUES TO DECLINE PAIN MEDS. PT SCHEDULED FOR SURGERY THIS A.M. @0730. NO ACUTE CHANGES THIS SHIFT,CALL LIGHT W/IN REACH.
--- NOTE | 2023-08-08 06:22 | NUR ---
JOWL TRIMMER VISIT JOWL TRIMMER IN TO SEE PT. A&OX3/4 QUESTIONS. PROVIDER INFORMED OK FOR SURGICAL PROCEDURE THIS A.M.
--- NOTE | 2023-08-08 06:24 | NUR ---
HOSPITALIST INFORMED OF [address] VILLELA REGARDING SPOT CHECK CBG OF 297. INFORMED OF SURGERY SCHEDULED FOR 729 THIS A.M. NO NEW ORDERS AT THIS TIME.
--- NOTE | 2023-08-08 12:21 | NUR ---
PT BROUGHT FROM FLOOR TO DAY SURGERY FOR PROCEDURE.
--- NOTE | 2023-08-08 12:24 | NUR ---
PT TO PRE OP AT APPROX 1200.
--- NOTE | 2023-08-08 15:34 | NUR ---
PT ARRIVED BACK TO ROOM FROM PACU. ANSWERS QUESTIONS BUT SLEEPY. KRIS, HR DIPPING DOWN TO 47 AND THEN RETURNING TO 50 BEATS PER MIN. STUMP DRESSING TO R JOSE ENRIQUE CDI. CALL LIGHT IN REACH. PROVIDED WATER AND JELLO. RESTING WITH EYES CLOSED.
--- NOTE | 2023-08-08 15:47 | NUR ---
CALLED DR WALDRON REGARDING CBG. ORDERS OBTAINED. REPORTED KRIS HR W/DR WALDRON, NO NEW ORDERS.
--- NOTE | 2023-08-08 16:55 | NUR ---
PALLIATIVE CARE/GERDA IN TO SEE PT. PT CONFUSED AT THIS TIME, DOES NOT REMEMBER WHERE HE IS. PIPE YOUNG, BEDSIDE.
--- NOTE | 2023-08-08 17:33 | NUR ---
Brief supportive visit this evening. Pt resting in bed and appears graugy. Pt's ex-girlfriend Gerri at bedside. Gerri reports Pt lives at [facility] now. Continued therapeutic listening. Pt reporting pain in his right hartman, appears to be phantom pain. Pt struggling with keeping his eyes opened. Pt and family agreeable for this RN to F/U when feeling a little better. Spoke with Primary RN Carol and discussed case. Reported Pt's pain. Palliative Care will remain available
--- NOTE | 2023-08-08 18:22 | NUR ---
SUMMARY NO ACUTE CHANGES SINCE ARRIVING TO FLOOR FROM PACU. AWAKE BUT CONFUSED TO WHERE LOCATED. KNOWS HAD R BKA. REPORTS PAIN "BETTER" TO R BKA AFTER TYLENOL. ATE APPROXIMATELY 40% OF DINNER. POA AT BEDSIDE. CALL LIGHT IN REACH, BED ALARM ON.
[2023-08-09 05:01] VITALS: BP 125/49
--- NOTE | 2023-08-09 06:31 | NUR ---
POD 1 S/P RIGHT BKA. PT VSS T/O NIGHT. DRESSING CDI, STUMP SOCK IN PLACE. CAP REFILL WNL. PAIN MGD W/TYLENOL AND REPOSITIONING. WOUNDS ON COCCYX CLEANSED W/SKINTEGRITY, NEW MEPILEX DRESSING APPLIED. HOWELL PATANT DNRG THU URINE. PT RADA PO, FEEDS SELF. PT PLEASANTLY CONFUSED T/O NIGHT, REORIENTED PRN. IVF CONT PER ORDERS. BED ALARM ON FOR SAFETY.
[2023-08-09 07:21] VITALS: BP 108/59
--- NOTE | 2023-08-09 11:50 | NUR ---
PT AGITATED. ASSISTED WITH DIALING PHONE. ATTEMPTED TO REORIENT. CALL LIGHT IN REACH.
[2023-08-09 15:26] VITALS: BP 115/49
--- NOTE | 2023-08-09 17:15 | NUR ---
SUMMARY PT REPOSITIONED DURING SHIFT FROM SIDE TO SIDE. DRESSING TO R BKA CDI. PT BECAME AGITATED MIDDAY AND PULLED IV. ALLOWED NEW IV TO BE PLACED AND HAS BEEN SLEEPING T/O AFTERNOON. ABX INFUSED PER ORDERS. BED ALARM ON, CALL LIGHT IN REACH.
[2023-08-09 18:47] VITALS: BP 117/48
[2023-08-10 04:55] VITALS: BP 121/53
--- NOTE | 2023-08-10 07:38 | NUR ---
SUMMARY POD #2 R. AMMYA PT IS RESTING QUIETLY AT THIS TIME, REPORT GIVEN TO DAY RN, BED ALARM IS ON, CALL LIGHT IN REACH, VSS, ON RA, LUNG SOUNDS REMAIN MOIST/DIM IN BILATERAL BASES, PT DENIES SOB. HYPOGLYCEMIA NOTED IN THE NIGHT, PO INTAKE ENC, GLUCOSE IMPROVED FOR A SHORT TIME THEM DROPPED AGAIN, HOSPITALIST NOTIFIED, D5NS @ 75 ML/HR WAS ORDERED, CURRENTLY INFUSING. PT WAS GIVEN TO HONEY THICK LIQUIDS DUE TO FREQUENT COUGHING W/PO INTAKE, DRSG CHANGED BY , REMAINS C/D/I, PAIN WNL.
[2023-08-10 07:49] VITALS: BP 136/54
[2023-08-10 10:59] VITALS: BP 134/56
--- NOTE | 2023-08-10 13:14 | NUR ---
BLOOD SUGAR: AC CHECK OF BS AT 1100 REMAINED 58. PT ALERT AND TALKING, CONFUSED. AMP OF D50 ORDERED BY . SPOT CHECK BS 114. SECOND AMP D50 HELD. PT SAT UP IN BED. GIVEN LUNCH HE IS ALERT. SUPERVISED WITH MEAL. NO CHOCKING OR COUGHING NOTED. NO STAFF AVAILABLE FOR SWALLOW EVAL THIS SHIFT, ORDER ENTERED. WILL SUPERVISE WITH MEALS.
[2023-08-10 13:26] LABS: Creatinine, Blood 1.73 mg/dL (0.60-1.20); Vancomycin, Trough 29.1 ug/mL (5.0-10.0)
[2023-08-10 14:14] VITALS: BP 114/57
--- NOTE | 2023-08-10 18:25 | NUR ---
PT HAS BEEN IMPROVING THIS SHIFT FROM AM ASSESSMENT. PT IS ALERT AND ORIENTED X2. CONFUSED AT TIMES. POD #2. BL AMPUATTIONS ELEVATED ON PILLOWS. HIPS AND ARMS ALSO FLOATED ON PILLOWS. PT HAS ULCER TO COCCYX WITH MEPILEX IN PLACE. PT EATING THIS AFTERNOON AND EVENING WITHOUT ANY SIGNS OF CHOKING. PT INDEP FEEDS SELF WITH SUPERVISION. SWALLOW EVAL ORDERED FOR SATURDAY. BLOOD SUGARS HAVE STABALIZED. UNABLE TO WORK WITH PT/OT THIS AM DUE TO MENTATION CHANGES. AM LABS TO REPEAT. CHRONIC HOWELL DRAINING WELL, CLEAR YELLOW URINE. ATTENDS IN PLACE, NO BM THIS SHIFT. USES CALL LIGHT APPROPRIATELY NEEDED.
[2023-08-10 20:05] VITALS: BP 116/58
[2023-08-11 04:06] VITALS: BP 125/53
[2023-08-11 04:31] LABS: BASOPHILS ABSOLUTE AUTO 0.05 K/mm3 (0.00-0.23); BASOPHILS PERCENT AUTO 0 % (0-2); EOSINOPHILS ABSOLUTE AUTO 0.39 K/mm3 (0.00-0.68); EOSINOPHILS PERCENT AUTO 3 % (0-6); Hematocrit 28.1 % (37.0-53.0); Hemoglobin 9.2 g/dL (13.5-17.5); IMMATURE GRAN ABSOLUTE AUTO 0.31 K/mm3 (0.00-0.10); IMMATURE GRAN PERCENT AUTO 3 % (0-1); LYMPHOCYTES ABSOLUTE AUTO 1.04 K/mm3 (0.84-5.20); LYMPHOCYTES PERCENT AUTO 8 % (21-46); MONOCYTES ABSOLUTE AUTO 1.46 K/mm3 (0.16-1.47); MONOCYTES PERCENT AUTO 12 % (4-13); Mean Corpuscular HGB 29.1 pg (26.0-34.0); Mean Corpuscular HGB Conc 32.7 g/dL (31.5-36.5); Mean Corpuscular Volume 89 fL (80-100); Mean Platelet Volume 9.6 fL (9.1-12.4); NEUTROPHILS ABSOLUTE AUTO 9.24 K/mm3 (1.96-9.15); NEUTROPHILS PERCENT AUTO 74 % (41-73); Platelet Count 509 K/mm3 (150-400); RDW Coefficient Variation 13.6 % (11.7-14.2); RDW Standard Deviation 44.5 fL (35.1-46.3); Red Blood Cell Count 3.16 M/mm3 (4.30-5.90); White Blood Cell Count 12.49 K/mm3 (4.00-11.30)
--- NOTE | 2023-08-11 04:54 | NUR ---
SHIFT SUMMARY POD 3 R BKA. NO ACUTE CHANGES OVERNIGHT. VS WNL FOR PT. R STUMP SOCK C/D/I. A&O x2-3, NOT ORIENTENTED TO TIME. TOLERATING ORALS, PT TOOK MEDICATIONS WHOLE IN SF PUDDING. SALIENE LOCKED. HOWELL DRAINING CLEAR URINE. BED/ATTENS CHANGE AFTER BM, ALONG WITH MEPILEX CHNAGE OVER COCCYX. NONBLACHABLE REDENNED AREA, APPROX 0.5CM SKIN TEAR DRAINING SANGUINOUS FLUID ON L BUTTOCK AND APPROX PUMPKIN SEED SIZED WHITE RAISED, ATTACHED AREA ON R BUTTOCK. PT REMAINS ON BEDREST. BED IN LOWEST POSITION, CALL LIGHT WITHIN REACH, WILL REPORT TO DAY RN.
[2023-08-11 05:01] LABS: Anion Gap 4 mmol/L (6-16); Blood Urea Nitrogen 38 mg/dL (8-24); Bun/Creatinine Ratio 21.6 (12.0-20.0); CO2, Blood 24 mmol/L (21-32); Calcium, Blood 7.8 mg/dL (8.5-10.1); Chloride, Blood 106 mmol/L (98-108); Creatinine, Blood 1.76 mg/dL (0.60-1.20); Glomerular Filtration Rate 40 (60-); Glucose, Blood 119 mg/dL (70-99); Potassium, Blood 4.4 mmol/L (3.5-5.5); Sodium, Blood 134 mmol/L (136-145); Vancomycin, Random 37.4 ug/mL
[2023-08-11 07:02] VITALS: BP 138/60
[2023-08-11 14:33] VITALS: BP 116/52
--- NOTE | 2023-08-11 15:35 | NUR ---
SHIFT SUMMARY: POD 3 RIGHT BKA NO SIGNIFICANT CHANGES DURING SHIFT. PATIENT IS A&OX2-3 WITH HX OF DEMENTIA BUT IS EASILY REDIRECTED. PATIENTS RIGHT BKA HAS A STUMP SOCK THAT IS C/D/I. HIS CHRONIC HOWELL IS DRAINING PER GRAVITY YELLOW URINE OUTPUT. HE WAS GIVEN A BED BATH THIS AFTERNOON SINCE HE REFUSED IT THIS MORNING. HIS COCCYX MEPILEX WAS CHANGED DURING THE BED BATH AND IS C/D/I. HE ALSO HAD A SMALL BM THIS AFTERNOON IN A BEDPAN. HE IS A 2 PERSON TO LOG ROLL SIDE TO SIDE IN THE BED. PATIENT IS LAYING IN BED ABD CALL LIGHT WITHIN REACH.
[2023-08-11 17:27] VITALS: BP 129/55
[2023-08-11 19:38] VITALS: BP 124/49
[2023-08-12 02:56] VITALS: BP 113/46
--- NOTE | 2023-08-12 04:17 | NUR ---
SHIFT SUMMARY POD 4 R BKA. NO ACUTE CHNAGES OVERNIGHT. VS WNL FOR PT. R STUMP SOCK C/D/I. A&O x2-3, NOT ORIENTED TO TIME. TOLERATING ORALS. SALIENE LOCKED. HOWELL DRAINING YELLOW URINE. PT REMAINS ON BEDREST. BED IN LOWEST POSITION, CALL LIGHT WITHIN REACH, WILL REPORT TO DAY RN.
[2023-08-12 04:22] LABS: BASOPHILS ABSOLUTE AUTO 0.07 K/mm3 (0.00-0.23); BASOPHILS PERCENT AUTO 1 % (0-2); EOSINOPHILS ABSOLUTE AUTO 0.44 K/mm3 (0.00-0.68); EOSINOPHILS PERCENT AUTO 4 % (0-6); Hematocrit 25.5 % (37.0-53.0); Hemoglobin 8.5 g/dL (13.5-17.5); IMMATURE GRAN PERCENT AUTO 2 % (0-1); LYMPHOCYTES ABSOLUTE AUTO 1.23 K/mm3 (0.84-5.20); LYMPHOCYTES PERCENT AUTO 11 % (21-46); MONOCYTES ABSOLUTE AUTO 1.14 K/mm3 (0.16-1.47); MONOCYTES PERCENT AUTO 10 % (4-13); Mean Corpuscular HGB 29.4 pg (26.0-34.0); Mean Corpuscular HGB Conc 33.3 g/dL (31.5-36.5); Mean Corpuscular Volume 88 fL (80-100); Mean Platelet Volume 9.2 fL (9.1-12.4); NEUTROPHILS ABSOLUTE AUTO 8.58 K/mm3 (1.96-9.15); NEUTROPHILS PERCENT AUTO 74 % (41-73); Platelet Count 446 K/mm3 (150-400); RDW Coefficient Variation 13.6 % (11.7-14.2); RDW Standard Deviation 43.9 fL (35.1-46.3); Red Blood Cell Count 2.89 M/mm3 (4.30-5.90); White Blood Cell Count 11.66 K/mm3 (4.00-11.30)
[2023-08-12 05:27] LABS: Anion Gap 5 mmol/L (6-16); Blood Urea Nitrogen 43 mg/dL (8-24); Bun/Creatinine Ratio 24.2 (12.0-20.0); CO2, Blood 23 mmol/L (21-32); Calcium, Blood 7.6 mg/dL (8.5-10.1); Chloride, Blood 107 mmol/L (98-108); Creatinine, Blood 1.78 mg/dL (0.60-1.20); Glomerular Filtration Rate 39 (60-); Glucose, Blood 155 mg/dL (70-99); Potassium, Blood 4.3 mmol/L (3.5-5.5); Sodium, Blood 135 mmol/L (136-145); Vancomycin, Random 20.1 ug/mL
[2023-08-12 07:05] VITALS: BP 136/51
--- NOTE | 2023-08-12 11:52 | NUR ---
DRESSING CHANGED BY DR WILKS THIS MORNING.
[2023-08-12 13:53] VITALS: BP 103/52
--- NOTE | 2023-08-12 15:03 | NUR ---
DISCHARGE SUMMARY PT A&OX4, VSS/RA, RAAD PO, IV DC'D, HOWELL PATENT & DRAINING YELLOW URINE, PAIN MANAGED WITH TYLENOL AND REPOSITIONING. LEFT WITH TRANSPORT TO GO TO [facility].
== END 2023-08-12 14:42 | disposition home or self-care (01) | DRG 617 ==
LOC: ER 09:30 → SURS 12:53
PROVIDERS: Hospitalist; Orthopaedic Surgery; Student in an Organized Health Care Education/Training Program; ADMIT Internal Medicine
PROC: 0Y6H0Z1 Detachment at Right Lower Leg, High, Open Approach (ICD-10-PCS; principal; 2023-08-08 12:30)
DX: E11.69 Type 2 diabetes mellitus with other specified complication (principal); E87.1 Hypo-osmolality and hyponatremia; M86.8X7 Other osteomyelitis, ankle and foot; L03.115 Cellulitis of right lower limb; I42.0 Dilated cardiomyopathy; I50.32 Chronic diastolic (congestive) heart failure; N39.0 Urinary tract infection, site not specified; L89.619 Pressure ulcer of right heel, unspecified stage; E11.621 Type 2 diabetes mellitus with foot ulcer; F03.90 Unspecified dementia, unspecified severity, without behavioral disturbance, psychotic disturbance, mood disturbance, and anxiety; E11.649 Type 2 diabetes mellitus with hypoglycemia without coma; E11.40 Type 2 diabetes mellitus with diabetic neuropathy, unspecified; M19.90 Unspecified osteoarthritis, unspecified site; E11.65 Type 2 diabetes mellitus with hyperglycemia; E11.51 Type 2 diabetes mellitus with diabetic peripheral angiopathy without gangrene; E78.5 Hyperlipidemia, unspecified; I48.0 Paroxysmal atrial fibrillation; I27.20 Pulmonary hypertension, unspecified; B96.4 Proteus (mirabilis) (morganii) as the cause of diseases classified elsewhere; B96.89 Other specified bacterial agents as the cause of diseases classified elsewhere; Z86.73 Personal history of transient ischemic attack (TIA), and cerebral infarction without residual deficits; Z89.512 Acquired absence of left leg below knee; Z87.440 Personal history of urinary (tract) infections; Z95.0 Presence of cardiac pacemaker; Z98.890 Other specified postprocedural states; Z87.891 Personal history of nicotine dependence; Z88.5 Allergy status to narcotic agent; Z88.2 Allergy status to sulfonamides; Z79.01 Long term (current) use of anticoagulants; Z79.82 Long term (current) use of aspirin; Z79.4 Long term (current) use of insulin; Z79.811 Long term (current) use of aromatase inhibitors; Z79.899 Other long term (current) drug therapy; Z86.711 Personal history of pulmonary embolism
CPT/HCPCS: 36415; 51702; 73701; 80048; 80053; 80202; 81001; 82565; 82947; 83735; 85025; 85027; 85651; 86140; 87040; 87086; 88307; 93005; 93010; 93306; 94760; 94762; 96365; 96366; 96375; 97110; 97162; 97166; 97530; 99285-25; A9270; J0171; J0696; J0744; J1100; J1630; J1815; J1956; J2250; J2371; J2405; J2704; J3010; J3370; J7030; J7042; J7050; J7120; Q9967

== ENCOUNTER 2023-08-15 15:45 | Inpatient (IN) | payer MEDICARE, OTHER ==
[~2023-08-15] VITALS: Ht 172.7 cm; Wt 80.8 kg
[2023-08-15 16:23] LABS: BASOPHILS ABSOLUTE AUTO 0.07 K/mm3 (0.00-0.23); BASOPHILS PERCENT AUTO 1 % (0-2); EOSINOPHILS ABSOLUTE AUTO 0.64 K/mm3 (0.00-0.68); EOSINOPHILS PERCENT AUTO 5 % (0-6); Hematocrit 29.1 % (37.0-53.0); Hemoglobin 9.8 g/dL (13.5-17.5); IMMATURE GRAN ABSOLUTE AUTO 0.11 K/mm3 (0.00-0.10); IMMATURE GRAN PERCENT AUTO 1 % (0-1); LYMPHOCYTES ABSOLUTE AUTO 0.46 K/mm3 (0.84-5.20); LYMPHOCYTES PERCENT AUTO 4 % (21-46); MONOCYTES ABSOLUTE AUTO 0.94 K/mm3 (0.16-1.47); MONOCYTES PERCENT AUTO 8 % (4-13); Mean Corpuscular HGB 29.3 pg (26.0-34.0); Mean Corpuscular HGB Conc 33.7 g/dL (31.5-36.5); Mean Corpuscular Volume 87 fL (80-100); Mean Platelet Volume 9.1 fL (9.1-12.4); NEUTROPHILS ABSOLUTE AUTO 9.82 K/mm3 (1.96-9.15); NEUTROPHILS PERCENT AUTO 82 % (41-73); Platelet Count 497 K/mm3 (150-400); RDW Coefficient Variation 13.9 % (11.7-14.2); RDW Standard Deviation 43.9 fL (35.1-46.3); Red Blood Cell Count 3.34 M/mm3 (4.30-5.90); White Blood Cell Count 12.04 K/mm3 (4.00-11.30)
[2023-08-15 16:41] LABS: Albumin, Blood 1.6 g/dL (3.4-5.0); Albumin/Globulin Ratio 0.3 (0.8-1.8); Bilirubin, Total 0.3 mg/dL (0.1-1.0); Bun/Creatinine Ratio 17.6 (12.0-20.0); Calcium, Blood 8.1 mg/dL (8.5-10.1); Creatinine, Blood 1.7 mg/dL (0.60-1.20); Globulin, Blood 4.6 g/dL (2.2-4.0); Total Protein, Blood 6.2 g/dL (6.4-8.2)
[2023-08-15 23:39] VITALS: BP 118/47
[2023-08-16] MEDS ORDERED: NOVOLOG FL100 UNIT/3 SC (00:46)
[2023-08-16 01:58] LABS: Source, Urine Foley catheter
[2023-08-16 02:02] LABS: Bilirubin, Urine Neg (Neg); Blood, Urine 4+ (Neg); Glucose Qualitative, Urine Neg (Neg); Ketones, Urine Neg (Neg); Leukocyte Esterase, Urine 3+ (Neg); Nitrite, Urine Neg (Neg); Protein, Urine 2+ (Neg); Urobilinogen, Urine NORM (Normal)
[2023-08-16 02:12] LABS: Appearance, Urine Hazy (Clear); Color, Urine Yellow (P-Yellow)
[2023-08-16 02:14] LABS: Bacteria Many /hpf; Squamous Epithelial Cells Mod /hpf (Few)
[2023-08-16 03:22] VITALS: BP 100/52
[2023-08-16 04:09] LABS: Bun/Creatinine Ratio 17.3 (12.0-20.0); Calcium, Blood 7.7 mg/dL (8.5-10.1); Creatinine, Blood 1.68 mg/dL (0.60-1.20); Potassium, Blood 3.9 mmol/L (3.5-5.5)
--- NOTE | 2023-08-16 05:22 | NUR ---
SHIFT SUMMARY PT ADMITTED FROM ER. ALERT BUT LETHARGIC. D10 GTT INFUSING @ 125, CHANGED TO 100MLS/HR PER EMAR ORDERS. PT ON Q1H CBGS, NOW ON Q2H DUE TO STABILITY OF CBG RESULTS. PT ADMINISTERED HIS ELQUIS, IMMEDIATELY STARTED COUGHING ON WATER, ST EVAL ORDERED. PT NPO. WOUNDS NOTED TO SACRUM, LEG, R STUMP, AND PENIS. PICS TO CHART. ADMISSION COMPLETED TO BEST OF ABILITY WITH DEMENTIA. USED PRIOR ADMISSIONS FOR INFORMATION. PT RESTING POST ADMIT. REMAINS ON D10GTT. BED ALARM ON. CALL LIGHT WITHIN REACH.
[2023-08-16 09:31] VITALS: BP 114/54
--- NOTE | 2023-08-16 12:49 | NUR ---
Pt resting in bed and is A&OX2/3. Pt denies pain at this time. Pt appears lethargic and weak. Engaged in brief gentle discussion regarding goals of care. Brief education on disease process including trajectory. Discussed considering hospice as an option. Pt does not really respond to conversation. Pt does report his primary HProxy is his ex girlfriend Gerri and alternate HProxy is his son. Ended visit to allow Pt to rest. Plan: Will F/U when Gerri arrives to visit. Palliative Care will remain available
[2023-08-16 14:26] VITALS: BP 99/50
--- NOTE | 2023-08-16 15:47 | NUR ---
Family at bedside. Pt resting in bed and appears moderately confused. Relayed conversation to family that took place with this PC RN and Pt regarding option for hospice. Educated on hospice philosophy with V/U made by family. Ex girlfriend Gerri (HProxy) reports [facility] has reached out to them. Pt and family agreeable for hospice services upon D/C from the hospital. Family would like referral sent to [facility]. Gerri is requesting COVID test be performed as Pt is coughing and her son just diagnosed with COVID. Spoke with Primary RN Bill, discussed plan, and relayed family's request for COVID test. Spoke with Liudmila and relayed wishes for [facility]. Spoke with Dr Levin and relayed Pt/family wishes. Palliative Care will remain available
--- NOTE | 2023-08-16 18:35 | NUR ---
SHIFT SUMMARY ALERT AT TIMES, FATIGUED AND NAPS FREQUENTLY, FORGETFUL AT TIMES, SOME DELUSIONS, HX DEMENTIA. MOSTLY INTERACTS APPROPRIATELY. TELE V-PACED AT 50, SOFT BP IN AFTERNOON 90'S OVER 50'S. LS CLEAR WITH DIM BASES. OCCASIONAL COUGH. SEEN BY ST, DIET MECH SOFT WITH THIN LIQUIDS, PILLS CRUSHED IN APPLESAUCE. ROOM AIR. APPETITE IMPROVED AT DINNER. BEDREST WITH BILAT BKA, R BKA RECENT, WITHIN LAST 2 WEEKS. Q2 HR BLOOD SUGARS, RANGING FROM 112-200. D50 RATE DECREASED IN AM FROM 100 ML/HR TO 30 ML/HR. MEDIUM SLIDING SCALE HUMALOG ADDED. CHRONIC INDWELLING HOWELL CHANGED AT ADMIT, NOTED PURULENT DRAINAINAGE AROUND CATH AR MEATUS, CATH CARE COMPLETED. INCONTINENT OF BOWEL IN ATTENDS. MULTIPLE SOFT BM'S THIS SHIFT. PRESSURE SORES TO SACRUM, MEPILEX IN PLACE, Q2 HR TURNS. ROUTINE IV ABX FOR UTI. PALLIATIVE CARE FOLLOWINGG, MADE DNR STATUS TODAY. PLAN IS STABILIZE MEDICALLY AND DISCHARGE ON HOSPICE BACK TO [facility]. WILL REPORT TO GOVERNMENT GUARD RN.
[2023-08-16 19:38] VITALS: BP 95/64
[2023-08-16 23:11] VITALS: BP 107/47
[2023-08-17] VITALS: BP 107/46
[2023-08-17 03:39] VITALS: BP 110/46
[2023-08-17 04:14] LABS: BASOPHILS ABSOLUTE AUTO 0.07 K/mm3 (0.00-0.23); BASOPHILS PERCENT AUTO 1 % (0-2); EOSINOPHILS ABSOLUTE AUTO 0.72 K/mm3 (0.00-0.68); EOSINOPHILS PERCENT AUTO 7 % (0-6); Hematocrit 23.8 % (37.0-53.0); Hemoglobin 7.9 g/dL (13.5-17.5); IMMATURE GRAN ABSOLUTE AUTO 0.15 K/mm3 (0.00-0.10); IMMATURE GRAN PERCENT AUTO 1 % (0-1); LYMPHOCYTES ABSOLUTE AUTO 1.09 K/mm3 (0.84-5.20); LYMPHOCYTES PERCENT AUTO 10 % (21-46); MONOCYTES ABSOLUTE AUTO 1.39 K/mm3 (0.16-1.47); MONOCYTES PERCENT AUTO 13 % (4-13); Mean Corpuscular HGB Conc 33.2 g/dL (31.5-36.5); Mean Corpuscular Volume 88 fL (80-100); Mean Platelet Volume 9.8 fL (9.1-12.4); NEUTROPHILS ABSOLUTE AUTO 7.63 K/mm3 (1.96-9.15); NEUTROPHILS PERCENT AUTO 69 % (41-73); Platelet Count 407 K/mm3 (150-400); RDW Coefficient Variation 13.9 % (11.7-14.2); RDW Standard Deviation 44.2 fL (35.1-46.3); Red Blood Cell Count 2.72 M/mm3 (4.30-5.90); White Blood Cell Count 11.05 K/mm3 (4.00-11.30)
[2023-08-17 04:30] LABS: Bun/Creatinine Ratio 14.5 (12.0-20.0); Calcium, Blood 7.5 mg/dL (8.5-10.1); Creatinine, Blood 1.93 mg/dL (0.60-1.20); Potassium, Blood 3.9 mmol/L (3.5-5.5)
--- NOTE | 2023-08-17 07:36 | NUR ---
D10 AT 30 MLS/ HOUR PLACED ON SB.
[2023-08-17 07:42] VITALS: BP 106/50
--- NOTE | 2023-08-17 08:00 | NUR ---
INITIAL ASSESSMENT PATIENT ORIENTED TO SELF AND TOWN ONLY. HX OF DEMENTIA. PATIENT IRRITABLE AND WITH FLAT AFFECT. PATIENT FALLS ASLEEP OFTEN. PATIENT WEAK BUT ABLE TO MOVE ALL EXTREMITIES. BILAT BKAS NOTED. PATIENT AFEBRILE. PATIENT PLACED ON 2 L NC TO KEEP SAT 90% AND GREATER DURING APNEIC PERIODS. PATIENT RA WHILE AWAKE. PATIENT V PACED AT HR OF 50. SBP IN THE LOW 100S. PATIENT HAS POOR APPETITE. ATTENDS IN PLACE. CHRONIC HOWELL DRAINING YELLOW COLORED URINE. PRESSURE WOUND TO SACRUM. CODEY TO R BKA STUMP. PENIS AND L GROIN REDDENED. D10 PLACED ON SB. BED LOW, CALL LIGHT IN REACH.
[2023-08-17 12:32] VITALS: BP 103/44
--- NOTE | 2023-08-17 12:35 | NUR ---
PATIENT AFEBRILE. HR AT 50. SBP 103. BLOOD SUGAR 163. NO COMPLAINTS. CARE CONTINUES.
[2023-08-17 14:53] LABS: Percent Saturation 16.9 % (20.0-50.0)
--- NOTE | 2023-08-17 16:00 | NUR ---
DR. MANZANARES CALLED AND INFORMED OF 34 BEAT RUN OF NON-SUSTAINING VTACH WITH MANY PACER SPIKES. INFORMED THAT STRIP IN CHART. NO ORDER AT THIS TIME.
[2023-08-17 16:09] VITALS: BP 108/57
--- NOTE | 2023-08-17 16:10 | NUR ---
PATIENT AFEBRILE. HR IN THE 50S. SBP IN THE LOW 100S. BLOOD SUGAR OF 132. NO COMPLAINTS. CARE CONTINUES.
--- NOTE | 2023-08-17 18:45 | NUR ---
SHIFT SUMMARY PATIENT REMAINED CONFUSED. PATIENT REMAINED IRRITABLE WITH NURSING CARE BUT COMPLIANT FOR THE MOST PART. PATIENT REMAINS WEAK BUT ABLE TO MOVE ALL EXTREMITIES. PATIENT REMAINED AFEBRILE. PATIENT REMAINED MOSTLY ON RA BUT ON 2 L NC AT TIMES DURING SLEEP FOR PERIODS OF APNEA. PATIENT SLEPT A LOT OF SHIFT. PATIENT REMAINED V PACED WITH OCCASIONAL PVCS, HR IN THE 50S. SBP IN THE LOW 100S. PATIENT DID HAVE 34 BEAT RUN OF VTACH THIS SHIFT. PATIENT HAD A COUPLE INCONTINENT STOOLS THIS SHIFT. ATTENDS IN PLACE. PATIENT HAD POOR APPETITE. CHRONIC HOWELL DRAINED ADEQUATE URINE OUTPUT. NO CHANGES TO SKIN NOTED. PATIENT REPOSITIONED THROUGHOUT SHIFT. D10 REMAINED ON SB THIS SHIFT. BLOOD SUGARS 218, 202, 163, 120, AND 132 THIS SHIFT. PATIENT HAD COMPLETE BED BATH THIS SHIFT. BED LOW, CALL LIGHT IN REACH. NO COMPLAINTS AT THIS TIME. REPORT WILL BE GIVEN TO ASSUMING SUPERVISOR HAIRSPRING FABRICATION NURSE.
[2023-08-17 20:00] VITALS: BP 112/46
[2023-08-18 00:05] VITALS: BP 129/56
[2023-08-18 04:00] VITALS: BP 105/42
[2023-08-18 04:12] LABS: BASOPHILS ABSOLUTE AUTO 0.06 K/mm3 (0.00-0.23); BASOPHILS PERCENT AUTO 1 % (0-2); EOSINOPHILS ABSOLUTE AUTO 0.56 K/mm3 (0.00-0.68); EOSINOPHILS PERCENT AUTO 6 % (0-6); Hematocrit 24.1 % (37.0-53.0); IMMATURE GRAN ABSOLUTE AUTO 0.14 K/mm3 (0.00-0.10); IMMATURE GRAN PERCENT AUTO 2 % (0-1); LYMPHOCYTES ABSOLUTE AUTO 0.91 K/mm3 (0.84-5.20); LYMPHOCYTES PERCENT AUTO 10 % (21-46); MONOCYTES ABSOLUTE AUTO 1.08 K/mm3 (0.16-1.47); MONOCYTES PERCENT AUTO 12 % (4-13); Mean Corpuscular HGB 28.7 pg (26.0-34.0); Mean Corpuscular HGB Conc 33.2 g/dL (31.5-36.5); Mean Corpuscular Volume 86 fL (80-100); Mean Platelet Volume 9.6 fL (9.1-12.4); NEUTROPHILS ABSOLUTE AUTO 6.26 K/mm3 (1.96-9.15); NEUTROPHILS PERCENT AUTO 69 % (41-73); Platelet Count 398 K/mm3 (150-400); RDW Coefficient Variation 13.9 % (11.7-14.2); RDW Standard Deviation 43.8 fL (35.1-46.3); Red Blood Cell Count 2.79 M/mm3 (4.30-5.90); White Blood Cell Count 9.01 K/mm3 (4.00-11.30)
[2023-08-18 04:36] LABS: Albumin, Blood 1.5 g/dL (3.4-5.0); Anion Gap 7 mmol/L (6-16); Blood Urea Nitrogen 29 mg/dL (8-24); Bun/Creatinine Ratio 15.8 (12.0-20.0); CO2, Blood 24 mmol/L (21-32); Calcium, Blood 7.5 mg/dL (8.5-10.1); Chloride, Blood 102 mmol/L (98-108); Creatinine, Blood 1.83 mg/dL (0.60-1.20); Glomerular Filtration Rate 38 (60-); Glucose, Blood 330 mg/dL (70-99); Phosphorus, Blood 3.7 mg/dL (2.5-4.9); Potassium, Blood 4.2 mmol/L (3.5-5.5); Sodium, Blood 133 mmol/L (136-145)
[2023-08-18 08:04] VITALS: BP 107/49
--- NOTE | 2023-08-18 08:37 | NUR ---
AM note Pt reponding to verbal stimuli, oriented x2. Pt denies pain, chest pain/pressure, sob, nausea, and dizziness. Tele vpaced 50's, bp stable. Spo2 >90% on ra, ls dim in bases. Abd soft nontender with hypoactive bt. Bilateral BKA, sutures noted to right side. Edema noted to ble and bue. Other vss. No other acute chagnes noted. Will continue to monitor.
[2023-08-18 11:16] VITALS: BP 110/58
[2023-08-18 16:18] VITALS: BP 106/45
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
[2023-08-18 20:00] VITALS: BP 116/43
[2023-08-18 21:03] LABS: Stool Occult Blood Guaiac 1 Pos (Neg)
[2023-08-19] VITALS: BP 105/45
[2023-08-19 04:00] VITALS: BP 118/46
[2023-08-19 04:05] LABS: BASOPHILS PERCENT AUTO 1 % (0-2); EOSINOPHILS ABSOLUTE AUTO 0.58 K/mm3 (0.00-0.68); EOSINOPHILS PERCENT AUTO 6 % (0-6); Hematocrit 24.6 % (37.0-53.0); Hemoglobin 8.2 g/dL (13.5-17.5); IMMATURE GRAN ABSOLUTE AUTO 0.18 K/mm3 (0.00-0.10); IMMATURE GRAN PERCENT AUTO 2 % (0-1); LYMPHOCYTES PERCENT AUTO 10 % (21-46); MONOCYTES ABSOLUTE AUTO 1.08 K/mm3 (0.16-1.47); MONOCYTES PERCENT AUTO 10 % (4-13); Mean Corpuscular HGB 29.1 pg (26.0-34.0); Mean Corpuscular HGB Conc 33.3 g/dL (31.5-36.5); Mean Corpuscular Volume 87 fL (80-100); Mean Platelet Volume 9.7 fL (9.1-12.4); NEUTROPHILS ABSOLUTE AUTO 7.59 K/mm3 (1.96-9.15); NEUTROPHILS PERCENT AUTO 72 % (41-73); Platelet Count 411 K/mm3 (150-400); RDW Standard Deviation 44.4 fL (35.1-46.3); Red Blood Cell Count 2.82 M/mm3 (4.30-5.90); White Blood Cell Count 10.53 K/mm3 (4.00-11.30)
[2023-08-19 04:22] LABS: Bun/Creatinine Ratio 17.1 (12.0-20.0); Calcium, Blood 7.5 mg/dL (8.5-10.1); Creatinine, Blood 1.75 mg/dL (0.60-1.20); Potassium, Blood 4.4 mmol/L (3.5-5.5)
[2023-08-19 07:47] VITALS: BP 119/45
[2023-08-19 11:08] VITALS: BP 105/46
[2023-08-19] MEDS ORDERED: TRAM50 PO (14:10)
[2023-08-19] MEDS ORDERED: PANT20 PO (14:10)
--- NOTE | 2023-08-19 14:12 | NUR ---
Contacted by physician for concerns of level of care related to patients needs for hospice. Pt presented to facility with RITIKA and hypoglycemia. History of Anemia, oseomyletisis, AFIB and significant PVD. Palliative care team has been working with pt and family on a plan of care. Afer much discussion with patients family decision was made to pursue hospice care. Review of diagnositics, chart notes and called the staff nurse at [facility] to get their assessment of pt trajectory of his disease. Nursing and staff at [facility] have struggled with his outbursts and expressions of stress and sadness of not living in his home anymore. They relay more pain and increasing decline in cognative abilities. He has had further stress and fear due to frequent ER visitis and hospital time. Pt at risk for extrodinary suffering and lack of dignity. Following [facility] directives for reasonable care and lack of burden. Plan is to discharge to [facility] on hospice and allow comfort and dignity.
== END 2023-08-19 16:46 | disposition hospice, inpatient (51) | DRG 638 ==
LOC: ER 15:45 → PCU 15:46
PROVIDERS: Family Medicine; Hospitalist; Internal Medicine; Student in an Organized Health Care Education/Training Program; ADMIT Internal Medicine
DX: E11.649 Type 2 diabetes mellitus with hypoglycemia without coma (principal); I42.9 Cardiomyopathy, unspecified; M86.8X7 Other osteomyelitis, ankle and foot; I50.32 Chronic diastolic (congestive) heart failure; E11.40 Type 2 diabetes mellitus with diabetic neuropathy, unspecified; Z66 Do not resuscitate; Z51.5 Encounter for palliative care; E11.51 Type 2 diabetes mellitus with diabetic peripheral angiopathy without gangrene; F03.90 Unspecified dementia, unspecified severity, without behavioral disturbance, psychotic disturbance, mood disturbance, and anxiety; N17.9 Acute kidney failure, unspecified; N18.9 Chronic kidney disease, unspecified; D63.1 Anemia in chronic kidney disease; M19.90 Unspecified osteoarthritis, unspecified site; E11.22 Type 2 diabetes mellitus with diabetic chronic kidney disease; E11.69 Type 2 diabetes mellitus with other specified complication; I48.0 Paroxysmal atrial fibrillation; Z88.2 Allergy status to sulfonamides; Z89.511 Acquired absence of right leg below knee; Z88.5 Allergy status to narcotic agent; Z79.899 Other long term (current) drug therapy; Z79.01 Long term (current) use of anticoagulants; Z79.4 Long term (current) use of insulin; Z79.82 Long term (current) use of aspirin; Z87.440 Personal history of urinary (tract) infections; Z95.0 Presence of cardiac pacemaker; Z98.890 Other specified postprocedural states; Z89.512 Acquired absence of left leg below knee; Z87.891 Personal history of nicotine dependence; Z86.73 Personal history of transient ischemic attack (TIA), and cerebral infarction without residual deficits; Z79.2 Long term (current) use of antibiotics; Z79.51 Long term (current) use of inhaled steroids
CPT/HCPCS: 36415; 51702; 76770; 80048; 80053; 80069; 81001; 82272; 82607; 82728; 82746; 82947; 83036; 83540; 83550; 83735; 85025; 87086; 92526; 92610; 94760; 94762; 96361; 96365; 96366; 96368; 96374; 96375; 99285-25; A9270; G0378; J0696; J0744; J2405; J7050